=== PATIENT | female | born 1930 ===

== ENCOUNTER 2017-08-19 16:37 | Inpatient (IN) | payer MEDICARE ==
--- NOTE | 2017-08-19 17:05 | ED PDOC ---
Arrival/HPI - General Time Seen by Provider: 08/19/17 16:46 Historian: Patient, Family - History of Present Illness Narrative History of Present Illness (Text): 87yoF, htn, hl, who was sent by Dr. Leavitt for noted rapid heart rate/afib, concern for chf as pt with sob/bl lower extremity mild edema wo calf pain/ tenderness, and otherwise no n/v/bustillo/dizziness/abdomen pain/numbness/pain with urination/chest pain/travel/prior blood clot/prior cancer. 08/19/17 17:02 Time/Duration: 24 hours Symptom Onset: Gradual Symptom Course: Unchanged Quality: Other (no pain) Activities at Onset: Rest Context: Sitting Past Medical History - Provider Review Nursing Documentation Reviewed: Yes - Travel History Have you recently traveled outside [place] w/in the past 3 mons?: No Family/Social History - Physician Review Nursing Documentation Reviewed: Yes Family/Social History: No Known Family HX Allergies/Home Meds Allergies/Adverse Reactions: Allergies No Known Allergies Allergy (Verified 08/19/17 17:16) Review of Systems - Review of Systems Constitutional: Normal Eyes: Normal ENT: Normal Respiratory: SOB Cardiovascular: Normal Gastrointestinal: Normal Genitourinary Female: Normal Musculoskeletal: Normal Skin: Normal Neurological: Normal Endocrine: Normal Hemo/Lymphatic: Normal Psychiatric: Normal Physical Exam Vital Signs Reviewed: Yes Vital Signs Temp Pulse Resp BP Pulse Ox 08/19/17 18:46 100 H 17 134/76 100 08/19/17 16:50 97.5 F L 105 H 18 144/90 99 Appearance: Positive for: Well-Appearing, Non-Toxic, Comfortable Pain Distress: None Mental Status: Positive for: Alert and Oriented X 3 - Systems Exam Head: Present: Atraumatic, Normocephalic Pupils: Present: PERRL Extroacular Muscles: Present: EOMI Conjunctiva: Present: Normal Ears: Present: Normal Mouth: Present: Moist Mucous Membranes Pharnyx: Present: Normal Nose (External): Present: Atraumatic, Abrasion Nose (Internal): Present: Normal Inspection Neck: Present: Normal Range of Motion Respiratory/Chest: Present: Clear to Auscultation, Good Air Exchange Cardiovascular: Present: Regular Rate and Rhythm Abdomen: No: Tenderness, Distention, Normal Bowel Sounds, Peritoneal Signs, Rebound, Guarding, McBurney's Point Tender, Rovsing's Sign Present, Hernias, Feeding Tubes, Ostomy Tubes, Mass/Organomegaly, Scars, Other Back: Present: Normal Inspection Upper Extremity: Present: Normal Inspection Lower Extremity: Present: Edema. No: Normal Inspection, CALF TENDERNESS, NORMAL PULSES, Cyanosis, Normal ROM, Lashawn's Sign, Tenderness, Swelling, Erythema, Deformity, Temperature Abnormalties, Neurovascularly Intact, Capillary Refill < 2 s, Other Neurological: Present: GCS=15, CN II-XII Intact, Speech Normal, Motor Func Grossly Intact Skin: Present: Warm, Normal Color Psychiatric: Present: Alert, Oriented x 3, Normal Insight, Normal Concentration Medical Decision Making ED Course and Treatment: 87yoF, htn, hl, who was sent by Dr. Leavitt for noted rapid heart rate/afib, concern for chf as pt with sob/bl lower extremity mild edema wo calf pain/ tenderness, and otherwise no n/v/bustillo/dizziness/abdomen pain/numbness/pain with urination/chest pain/travel/prior blood clot/prior cancer. ECG: sinus tachycardia wtih premature supraventricular complexes with junctional escape complexes. 08/19/17 17:04 08/19/17 18:40 wbc 9.7 hb 8.2 plts 295 INR 1.56 Mg 0.5 Trop 0.07 BNP 9090 elevated LFTs transaminases Tbili 0.9 CXR vascular markings 08/19/17 18:40 08/19/17 18:56 08/19/17 18:56 lasix 40mg Magnesium 2gm consented ordered 2u prbc 08/19/17 18:57 08/19/17 18:57 08/19/17 19:11 d/w Dr. Barajas who agreed with lasix 40mg, 2u prbc, admit to tele, and consult Dr. Leavitt Reassessment Condition: Re-examined, Improved - Lab Interpretations Lab Results: 08/19/17 16:50 08/19/17 16:50 Lab Results 08/19/17 16:50: Sodium 141, Potassium 3.9, Chloride 101, Carbon Dioxide 21, Anion Gap 23 H, BUN 32 H, Creatinine 0.8, Est GFR ( Amer) > 60, Est GFR ( Non-Af Amer) > 60, Random Glucose 161 H, Calcium 8.4, Magnesium 0.5 L*, Total Bilirubin 0.9, AST 68 H, ALT 57 H, Alkaline Phosphatase 160 H, Lactate Dehydrogenase 771 H, Total Creatine Kinase 38, Troponin I 0.07, NT-Pro-B Natriuret Pep 9090 H, Total Protein 7.5, Albumin 3.7, Globulin 3.8, Albumin/ Globulin Ratio 1.0 L 08/19/17 16:50: PT 18.0 H, INR 1.56 H, APTT 27.8 08/19/17 16:50: WBC 9.7, RBC 3.69, Hgb 8.2 L, Hct 27.1 L, MCV 73.4 L, MCH 22.2 L , MCHC 30.3 L, RDW 18.5 H, Plt Count 295, MPV 10.4, Gran % 81.6 H, Lymph % (Auto ) 11.5 L, [place] % (Auto) 6.7 H, Eos % (Auto) 0.0 L, Baso % (Auto) 0.2, Gran # 7.87 H, Lymph # (Auto) 1.1 L, [place] # (Auto) 0.7 H, Eos # (Auto) 0.0, Baso # ( Auto) 0.02 I have reviewed the lab results: Yes - RAD Interpretation Radiology Orders: 08/19/17 17:37 CHEST PORTABLE [RAD] Stat Cytology Manager: ED Physician (cxr vascular markings), Radiologist (cxr cardiomegaly , no pulmonary congestion, no infiltrate b/l) - EKG Interpretation Interpreted by ED Physician: Yes (sinus tachycardia wtih premature supraventricular complexes with junctional) Type: 12 lead EKG - Medication Orders Current Medication Orders: Furosemide (Lasix) 40 mg IVP STAT STA Stop: 08/19/17 18:54 Magnesium Sulfate 2 gm/ Sodium (Chloride) 104 mls @ 102 mls/hr IVPB ONCE ONE Stop: 08/19/17 19:56 Disposition/Present on Arrival - Present on Arrival Any Indicators Present on Arrival: No - Disposition Have Diagnosis and Disposition been Completed?: Yes Diagnosis: Anemia, CHF (congestive heart failure) Disposition: HOSPITALIZED Disposition Time: 19:13 Patient Plan: Admission Condition: IMPROVED Discharge Instructions (ExitCare): Heart Failure (ED) Referrals: Dariusz Barajas JD, MD [Primary Care Provider] - Follow up with primary
[2017-08-19 17:44] LABS: BASO # 0.02 K/mm3 (0.0-2.0); BASO % 0.2 % (0.0-3.0); GRAN # 7.87 (1.4-6.5); GRAN % 81.6 % (50.0-68.0); HEMOGLOBIN 8.2 g/dL (12.0-16.0); LYMPH # 1.1 (1.2-3.4); LYMPH % 11.5 % (22.0-35.0); MEAN CELL VOLUME 73.4 fl (80.0-105.0); MEAN CORPUSCULAR HEMOGLOBIN 22.2 pg (25.0-35.0); MEAN CORPUSCULAR HGB CONC 30.3 g/dl (31.0-37.0); MEAN PLATELET VOLUME 10.4 fl (7.0-11.0); MONO # 0.7 (0.1-0.6); MONO % 6.7 % (1.0-6.0); RBC 3.69 10^6/uL (3.5-6.1); RED CELL DISTRIBUTION WIDTH 18.5 % (11.5-14.5); WHITE BLOOD COUNT 9.7 10^3/ul (4.5-11.0)
[2017-08-19 17:54] LABS: INR 1.56 (0.93-1.08); PARTIAL THROMBOPLASTIN TIME 27.8 Seconds (25.1-36.5)
[2017-08-19 18:08] LABS: TROPONIN I 0.07 ng/mL
[2017-08-19 18:44] LABS: ALBUMIN 3.7 g/dL (3.0-4.8); ALT/SGPT 57 U/L (7-56); AST/SGOT 68 U/L (14-36); B-TYPE NATRIURETIC PEPTIDE 9090 pg/mL (0-450); BLOOD UREA NITROGEN 32 mg/dL (7-21); CALCIUM 8.4 mg/dL (8.4-10.5); GFR AFRICAN-AMERICAN > 60; GFR NON-AFRICAN AMERICAN > 60
--- NOTE | 2017-08-19 18:58 | RAD ---
HISTORY: 87yoF, sob COMPARISON: No prior. FINDINGS: LUNGS: No active pulmonary disease. PLEURA: No significant pleural effusion identified, no pneumothorax apparent. CARDIOVASCULAR: Cardiomegaly is apparent with dense mitral annular calcifications as well. No definite pulmonary vascular derangement evident. OSSEOUS STRUCTURES: No significant abnormalities. VISUALIZED UPPER ABDOMEN: Normal. OTHER FINDINGS: None. IMPRESSION: Cardiomegaly. No pulmonary venous congestion. No acute infiltrate bilaterally.
--- NOTE | 2017-08-19 19:17 | CARD ---
APPROVED REPORT EKG Measurement Heart [id number] <Conclusion> Sinus tachycardia with premature supraventricular complexes Possible Anterior infarct, age undetermined Abnormal ECG
[2017-08-19] MEDS ORDERED: Magnesium Sulfate 2 GM in Sodium Chloride 0.9% 100 ML IVPB ONE (19:52)
[2017-08-19] MEDS: Magnesium Sulfate 2 GM in Sodium Chloride 0.9% 100 ML IVPB ONE ×2 (20:15→22:29)
[2017-08-19] MEDS ORDERED: Magnesium Oxide 400 mg Tab UD PO STA (20:36)
[2017-08-19] MEDS: Potassium Chloride 20 mEq ER Tab PO SCH (21:16)
[2017-08-20 03:57] LABS: URINE BILIRUBIN NEGATIVE (NEGATIVE); URINE BLOOD TRACE-INTACT (NEGATIVE); URINE GLUCOSE (UA) NEGATIVE (NEGATIVE); URINE LEUKOCYTE ESTERASE NEGATIVE Leu/uL (NEGATIVE); URINE PROTEIN NEGATIVE mg/dL (<30 mg/dL); URINE UROBILINOGEN 0.2 E.U./dL (<1 E.U./dL)
[2017-08-20 03:58] LABS: URINE APPEARANCE CLEAR (CLEAR); URINE COLOR YELLOW (YELLOW)
[2017-08-20 04:18] LABS: URINE BACTERIA RARE (NEG); URINE EPITHELIAL CELLS 0 - 2 /hpf (0-5); URINE WBC 0 - 2 /hpf (0-6)
--- NOTE | 2017-08-20 05:25 | CON ---
DATE: 08/19/2017 LOCATION: Emergency room. REASON FOR CONSULTATION: Atrial fibrillation, rapid rate, shortness of breath, hypertension. HISTORY OF PRESENT ILLNESS: An 87-year-old female, known hypertensive for long time, admitted with a history that recently started getting shortness of breath on minimal exertion,, now it got worsened, feels shortness of breath. She sleeps on two pillows and sometimes she gets PND and has to sit up on the bedside. She also noticed swelling on the feet. The patient was seen in office, and at that time her heart rate was around 150 per minute. EKG in the office showed atrial fibrillation, rapid ventricular rate. The patient was sent to emergency room of [facility] where the EKG showed multifocal atrial rhythm. The patient had converted from atrial fibrillation to multifocal atrial rhythm while travel from my office to emergency room. The patient denies any chest pain, but continued to have shortness of breath. At the time of atrial fibrillation, the patient also complained about palpitations. Patient states that recently she twice had a syncopal episode, and she was admitted both time at [facility]; one time she was there seven days, another time she was there six days, and the patient is not aware of what the diagnosis was made at that time. PAST MEDICAL HISTORY: Positive for hypertension. PERSONAL HISTORY: Denies smoking. Denies drinking. The patient recently also notes that she is losing weight. Appetite is very poor and she is also feeling weak. Denies hematemesis or melena. ALLERGIES: THE PATIENT DENIES ANY ALLERGIES. MEDICATION AT HOME: Patient was on multiple medications at home. PHYSICAL EXAMINATION: VITAL SIGNS: Blood pressure 134/76, initial blood pressure 144/90, respiration 18, pulse 105, but in my office pulse was around 150, temperature 97.5. HEENT: Head is normocephalic. Eyes: Pupils normal. Conjunctivae pale. NECK: JVP elevated. LUNGS: Basilar rales. CARDIOVASCULAR: S1 and S2. Pansystolic murmur, grade 3/6. No rubs. ABDOMEN: Soft, nontender. No organomegaly. Bowel sounds normal. EXTREMITIES: The patient has edema on the feet. No clubbing. No cyanosis. LABORATORY DATA: Shows WBC 9.7, hemoglobin 8.2, hematocrit 27.1, platelet 295. Sodium 141, potassium 3.9, BUN 32, creatinine 0.8, magnesium 0.5, AST 58, ALT 57. NT-pro-B natriuretic peptide 9090. Total protein and albumin normal. Chest x-ray showed mild congestive heart failure changes. EKG now has converted into multifocal atrial rhythm with nonspecific ST-T changes. EKG in my office showed atrial fibrillation with rapid ventricular, rate between 150-160 per minute. DIAGNOSES: 1. Congestive heart failure secondary to hypertension. 2. Atrial fibrillation. 3. Hypertension. 4. Anemia. 5. AST, ALT elevated suggestive of hepatic dysfunction. 6. Anemia with low MCH, MCHC, MCV suggestive of iron-deficiency anemia, rule out gastrointestinal bleeding. PLAN: Plan is we will give Lopressor 50 mg p.o. b.i.d., Lasix 40 mg IV daily, potassium 20 mg p.o. daily. The patient will need workup for iron-deficiency anemia, hypertension. Low magnesium, we will give magnesium therapy. We will check TSH and also check lipid profile. We will monitor intake and output and follow up labs. We will follow with you. Eveline Leavitt MD
[2017-08-20 07:13] LABS: BASO # 0.02 K/mm3 (0.0-2.0); BASO % 0.2 % (0.0-3.0); EOS % 0.1 % (1.5-5.0); GRAN # 11.09 (1.4-6.5); GRAN % 87.2 % (50.0-68.0); HEMOGLOBIN 10.3 g/dL (12.0-16.0); LYMPH # 0.9 (1.2-3.4); LYMPH % 7.3 % (22.0-35.0); MEAN CELL VOLUME 75.2 fl (80.0-105.0); MEAN CORPUSCULAR HEMOGLOBIN 23.7 pg (25.0-35.0); MEAN CORPUSCULAR HGB CONC 31.5 g/dl (31.0-37.0); MEAN PLATELET VOLUME 10.8 fl (7.0-11.0); MONO # 0.7 (0.1-0.6); MONO % 5.2 % (1.0-6.0); RBC 4.35 10^6/uL (3.5-6.1); RED CELL DISTRIBUTION WIDTH 18.4 % (11.5-14.5); WHITE BLOOD COUNT 12.7 10^3/ul (4.5-11.0)
[2017-08-20 07:28] LABS: B-TYPE NATRIURETIC PEPTIDE 8780 pg/mL (0-450)
[2017-08-20 07:32] LABS: LDL CHOLESTEROL 128 mg/dL (0-129)
[2017-08-20 07:34] LABS: ALB/GLOB RATIO 0.9 (1.1-1.8); ALBUMIN 3.7 g/dL (3.0-4.8); ALT/SGPT 77 U/L (7-56); AST/SGOT 93 U/L (14-36); BLOOD UREA NITROGEN 37 mg/dL (7-21); CALCIUM 8.4 mg/dL (8.4-10.5); GFR AFRICAN-AMERICAN > 60; GFR NON-AFRICAN AMERICAN 60; HDL CHOLESTEROL 25 mg/dL (29-60)
[2017-08-20] MEDS ORDERED: Magnesium Sulfate 2 GM in Sodium Chloride 0.9% 100 ML IVPB ONE (09:48)
[2017-08-20] MEDS: Potassium Chloride 20 mEq ER Tab PO SCH (10:08)
[2017-08-20] MEDS: Magnesium Oxide 400 mg Tab UD PO SCH ×2 (10:09→17:49)
[2017-08-20 11:25] VITALS: BMI 22.3
--- NOTE | 2017-08-20 14:24 | PN ---
DATE: 08/20/2017 LOCATION: The patient on room 260, bed 2. REASON FOR CONSULTATION AND FOLLOWUP: Atrial fibrillation converted to multifocal atrial tachycardia, atrial fibrillation versus rapid rate, shortness of breath, hypertension, anemia, history of recent syncope, was at [facility]. SUBJECTIVE: The patient lying comfortably in bed. Denies any chest pain. Her shortness of breath has improved. Her palpitation has also improved. Denies any dizziness. PHYSICAL EXAMINATION VITAL SIGNS: Blood pressure 136/79, respirations 19, pulse 93, temperature 97.8. HEENT: Head is normocephalic. Eyes: Pupils normal. Conjunctivae pale. NECK: JVP low. Carotids equal. THORAX: AP diameter normal. The patient has ____ are improved. CARDIOVASCULAR: S1 and S2. Pansystolic murmur. No rub. ABDOMEN: Soft. Bowel sounds normal. EXTREMITIES: Swelling and edema has also improved. LABORATORY DATA: WBC 12.7; hemoglobin 10.3, yesterday hemoglobin was 8.2; hematocrit 32.7, yesterday hematocrit was 27.1 so this reflects probably the patient was diuresed, so it is a diuretic effect with hemoconcentration. Sodium 139, potassium 4.6, BUN 37, creatinine 0.9. Random glucose 133, phosphorus 5.3, calcium 8.4. Magnesium yesterday was 0.5, today is 1.4. AST yesterday was 68, today 93. ALT yesterday 57, today is 77. Alkaline phosphatase yesterday 160, today is 210. NT-pro-B natriuretic peptide 8780, yesterday was 9090. Total protein 7.7, albumin 3.7. PT 18, INR 1.56, PTT 27.8. DIAGNOSES: Congestive heart failure secondary to hypertension and a run of atrial fibrillation. In my office, the patient's EKG showed atrial fibrillation rate around 150 to 160 per minute. However, by the time, she came to the Emergency Room, she converted to multifocal atrial rhythm. Anemia, hypertension, AST and ALT elevated, hepatic dysfunction. Hemoglobin, hematocrit, MCV, MCH, MCHC low suggestive of iron-deficiency anemia, rule out gastrointestinal bleeding, hypomagnesemia. PLAN: Plan is to do stool guaiac daily. Also, we will repeat labs in the morning. We will give magnesium sulfate 2 g IV today and we will also do hepatitis profile and repeat PT/INR in the morning and we will also do abdominal ultrasound. The patient has history of weight loss, loss of appetite, and abnormal LFTs. The patient is on Lasix 40 mg IV daily, metoprolol 50 mg b.i.d., magnesium oxide 400 mg p.o. b.i.d., lisinopril 10 mg daily. We will do abdominal ultrasound also and we will also try to get echo report from [facility] where she was admitted twice, once she stayed there seven days and second time she stayed there 6 days, both times she went in for syncope. The patient's family does not know the diagnosis, but the workup was done. We will follow. Eveline Leavitt MD
--- NOTE | 2017-08-20 16:18 | US ---
HISTORY: Abnormal LFTs, Weight Loss, Appetite Loss. COMPARISON: None. TECHNIQUE: Sonographic evaluation of the abdomen. FINDINGS: LIVER: Measures 14.8 cm. Normal echogenicity of the liver parenchyma. No mass. No intrahepatic bile duct dilatation. GALLBLADDER: Multiple gallstones. There is edema of the gallbladder wall which measures 10 mm thick COMMON BILE DUCT: Measures 5.5 mm. No stones. No dilatation. PANCREAS: Unremarkable as visualized. No mass. No ductal dilatation. RIGHT KIDNEY: Measures 9.4 x 3.9 x 5.2cm. Normal echogenicity. No calculus, mass, or hydronephrosis. There is a 2 cm cyst LEFT KIDNEY: Measures 10.4 x 4.5 x 5.0cm. Normal echogenicity. No calculus, mass, or hydronephrosis. SPLEEN: Normal in size and contour. No mass. 11.1 x 3.4 x 3.3 cm AORTA: No aneurysmal dilatation. IVC: Unremarkable. OTHER FINDINGS: None. IMPRESSION: Multiple gallstones. There is edema of the gallbladder wall which measures 10 mm thick
--- NOTE | 2017-08-20 17:27 | CARD ---
APPROVED REPORT EXAM: Two-dimensional and M-mode echocardiogram with Doppler and color Doppler. INDICATION Atrial Fibrillation Congestive Heart Failure 2D DIMENSIONS Left Atrium (2D)5.7 (1.6-4.0cm)IVSd1.1 (0.7-1.1cm) LVDd4.5 (3.9-5.9cm)LVOT Diameter2.1 (1.8-2.4cm) PWd1.4 (0.7-1.1cm)LVDs3.5 (2.5-4.0cm) FS (%) 22.8 %LVEF (%)46.0 (>50%) M-Mode DIMENSIONS Aortic Root3.30 (2.2-3.7cm)Aortic Cusp Exc.1.10 (1.5-2.0cm) Aortic Valve AoV Peak Hjkbrlmw807.0cm/sAoV VTI40.8cmAO Peak GR.17mmHg LVOT Peak Tadqsooa57.4cm/sLVOT VTI14.60cmAO Mean GR.10mmHg JAYCEE (VMAX)1.27ry0WAF (VTI)1.57fq4LJ P 1/2 Lgys503tc Mitral Valve MV PVC55qeW/A ratio0.0MVA (PHT)3.44cm2 TDI E/Lateral E'0.0E/Medial E'0.0 Pulmonary Valve PV Peak Fzkcikro53.0cm/sPV Peak Grad.2mmHg Tricuspid Valve TR Peak Fjytqtrp681ki/sRAP UCCBUFDB59yuSoXV Peak Gr.76mmHg [id number] <Conclusion> LV Size Normal. Mild LV Hypeertrophy. Mildly Decreased LV Systolic Function with LV Ej.Fr: 45-50%. Lt Atrium and Rt Atrium Both Enlarged. Mitral Annulus Heavily Calcified. Thickened Mitral Valve Leaflets.But Opening is Adequate. Moderate Mitral Regurge. Thickened Aortic Valve Leaflets. Aortic Valv e opening Adequate. AV Max.Pr.Gradient 17mm Hg. Moderate to Severe Aortic Regurge. Severe Tricuspid Regurge. RVSP 86mm Hg suggestive of Severe Pulmonary Hypertension.
[2017-08-20] MEDS: Insulin Reg-LOW-Coverage SC SCH ×2 (17:33→22:16)
[2017-08-20] MEDS ORDERED: Iohexol 240 (50 ml) ONE (21:43)
[2017-08-20] MEDS: metroNIDAZOLE IV 500 mg/100 ml 500 MG/100 ML BAG IVPB SCH (22:50)
--- NOTE | 2017-08-21 02:05 | HP ---
HISTORY OF PRESENT ILLNESS: The patient is an 87-year-old female referred by Cardiology, Dr. Leavitt, for rapid heart rate. The patient was found to be in rapid atrial fibrillation. She is now admitted on the telemetry unit for further evaluation and management. PAST MEDICAL HISTORY: Includes hypertension, anemia of unknown etiology, type 2 diabetes mellitus. Past medical history is negative for myocardial infarct, negative for diabetes. The patient was recently admitted for possible syncope to [facility] in 05/2017. She had a transesophageal echocardiogram, which shows severe aortic regurgitation. The patient denies any chest pain. She has mild to moderate dyspnea on exertion. She denies any melena. No bright red blood per rectum. She has an unquantified weight loss over the past several months. PAST SURGICAL HISTORY: The patient has no significant past surgical history. CURRENT MEDICATIONS: Include omeprazole, Feosol, glimepiride, amlodipine 10 mg daily, Lasix 20 mg daily, tramadol, Zocor 20 mg daily, losartan 100 mg daily, aspirin and Fioricet. SOCIAL HISTORY: The patient has no history of tobacco or alcohol use. FAMILY HISTORY: Noncontributory. ALLERGIES: THE PATIENT HAS NO KNOWN DRUG ALLERGIES. She is independent with ADLs and IADLs. REVIEW OF SYSTEMS: Essentially as above. PHYSICAL EXAMINATION: GENERAL: The patient is a well-developed, mildly cachectic female, in no acute distress. VITAL SIGNS: Blood pressure 126/72, temperature 98.4, pulse 73, respiratory rate 20. HEENT: Head is normocephalic, atraumatic. Pupils equal, round, reactive to light. Extraocular movements intact. NECK: Supple with no thyromegaly. No carotid bruit. No adenopathy. LUNGS: Show a few bibasilar crackles. HEART: Regular rate and rhythm with frequent ectopic beats, grade 3/6 systolic murmur. ABDOMEN: Soft, nontender. Bowel sounds are normoactive. EXTREMITIES: Without cyanosis, clubbing or edema. NEUROLOGIC: The patient is awake and oriented x3, without focal sensory or motor deficits. SKIN: Warm and dry. LABORATORY DATA: WBC is 12.7; hemoglobin 10.3, status post transfusion of 2 units of packed cells, up from 8.2 on admission; hematocrit 32.7, platelets 284,000. Sodium 139, potassium 4.6, chloride 99, CO2 of 24, BUN 37, creatinine 0.9, glucose 133, phosphorus is 5.3, magnesium is 1.4, status post supplementation, total bilirubin 1.7, AST 93, ALT 77, alkaline phosphatase 210, LDH 771. BNP is elevated 8780. Troponin is 0.07. CPK is 38. Chest x-ray shows cardiomegaly with no pulmonary venous congestion and no infiltrates bilaterally. IMPRESSION: 1. Congestive heart failure. 2. Atrial fibrillation, paroxysmal. 3. Hypertension and hypertensive cardiovascular disease. 4. Severe aortic regurgitation. 5. Anemia with elevated liver function tests, rule out gastrointestinal malignancy. PLAN The patient has been admitted to telemetry unit. Cardiology consultation by Dr. Leavitt is appreciated. The patient has been started on Lasix, oxygen, lisinopril, magnesium has been supplemented. We will start the patient on low-dose regular insulin coverage. We will obtain Gastroenterology consult with Dr. Silverio for evaluation for anemia. Physical therapy and social work for discharge planning. Echocardiogram is pending. Dariusz Barajas JD/
[2017-08-21] MEDS: metroNIDAZOLE IV 500 mg/100 ml 500 MG/100 ML BAG IVPB SCH ×3 (05:44→21:25)
[2017-08-21 06:26] LABS: BASO # 0.02 K/mm3 (0.0-2.0); BASO % 0.2 % (0.0-3.0); EOS # 0.1 (0.0-0.7); EOS % 0.8 % (1.5-5.0); GRAN # 9.98 (1.4-6.5); GRAN % 84.3 % (50.0-68.0); HEMOGLOBIN 9.7 g/dL (12.0-16.0); LYMPH # 1.1 (1.2-3.4); LYMPH % 8.9 % (22.0-35.0); MEAN CELL VOLUME 75.3 fl (80.0-105.0); MEAN CORPUSCULAR HEMOGLOBIN 23.3 pg (25.0-35.0); MEAN CORPUSCULAR HGB CONC 30.9 g/dl (31.0-37.0); MEAN PLATELET VOLUME 10.8 fl (7.0-11.0); MONO # 0.7 (0.1-0.6); MONO % 5.8 % (1.0-6.0); RBC 4.17 10^6/uL (3.5-6.1); RED CELL DISTRIBUTION WIDTH 18.6 % (11.5-14.5); WHITE BLOOD COUNT 11.8 10^3/ul (4.5-11.0)
[2017-08-21] MEDS ORDERED: Iohexol 240 (50 ml) ONE (06:32)
[2017-08-21 07:01] LABS: ALB/GLOB RATIO 0.9 (1.1-1.8); ALBUMIN 3.3 g/dL (3.0-4.8); ALT/SGPT 81 U/L (7-56); AST/SGOT 96 U/L (14-36); BILIRUBIN,DIRECT 0.6 mg/dL (0.0-0.4); BLOOD UREA NITROGEN 43 mg/dL (7-21); CALCIUM 8.2 mg/dL (8.4-10.5); GFR AFRICAN-AMERICAN > 60; GFR NON-AFRICAN AMERICAN 53
[2017-08-21] MEDS: Insulin Reg-LOW-Coverage SC SCH ×4 (08:16→22:08)
[2017-08-21] MEDS: Magnesium Oxide 400 mg Tab UD PO SCH ×2 (09:41→17:30)
[2017-08-21] MEDS: Potassium Chloride 20 mEq ER Tab PO SCH (09:42)
[2017-08-21] MEDS: cefTRIAXone 1 gm 1 GM/100 ML BAG IVPB SCH (09:42)
--- NOTE | 2017-08-21 10:39 | CT ---
PROCEDURE: CT Abdomen and Pelvis with contrast HISTORY: sepsis r/o acute cholecystitis COMPARISON: August 20, 2017. Abdominal ultrasound. Summary of findings on the comparison examination:Multiple gallstones. There is edema of the gallbladder wall which measures 10 mm thick TECHNIQUE: Oral contrast only. Radiation dose: Total exam DLP = 352.70 mGy-cm. This CT exam was performed using one or more of the following dose reduction techniques: Automated exposure control, adjustment of the mA and/or kV according to patient size, and/or use of iterative reconstruction technique. FINDINGS: LOWER THORAX: Unremarkable. LIVER: Unremarkable. No gross lesion or ductal dilatation. GALLBLADDER AND BILE DUCTS: Dilated gallbladder, small gallstones. No CT evidence of acute cholecystitis. PANCREAS: Unremarkable.[place] No gross lesion or ductal dilatation. SPLEEN: Unremarkable. ADRENALS: Unremarkable. No mass. KIDNEYS AND URETERS: Unremarkable. No hydronephrosis. No solid mass. VASCULATURE: Unremarkable. No aortic aneurysm. BOWEL: Large right inguinal hernia containing nondilated loops of small bowel. No evidence of incarceration or more proximal small bowel obstruction. Moderate-sized hiatal hernia. Masslike process in the cardia seen on all 3 orthogonal planes. While this may represent adherent ingested material gastric mass should also be considered and follow-up is recommended. Diverticulosis without an acute inflammatory component or other associated pathologic process. APPENDIX: No abnormalities to suggest acute appendicitis. No right lower quadrant inflammatory processes identified. PERITONEUM: Unremarkable. No free fluid. No free air. LYMPH NODES: Unremarkable. No enlarged lymph nodes. BLADDER: Unremarkable. REPRODUCTIVE: Unremarkable. BONES: No acute fracture. Scoliosis, secondary degenerative change at multiple levels. OTHER FINDINGS: None. IMPRESSION: Cholelithiasis without CT evidence of acute cholecystitis. Possible mass in the stomach. Elective followup recommended. As an alternative to endoscopy, repeat CT with oral contrast may resolve this issue. Right inguinal hernia without evidence of incarceration or proximal obstruction. Additional benign and/or incidental findings described above.
--- NOTE | 2017-08-21 11:06 | PQF CHF ---
This form is a permanent part of the medical record Clarification of your documentation is requested to better reflect the severity of illness and intensity of treatment of your patient. Indicators present Documentation of " CHF 2nd to HTN requires clarification as to type & acuity POA. ECHO reveals mildly decreased LVLEF- 46.0 [x] Diagnosis of CHF and/or history of CHF [x] BNP > 200 [] Imaging Finding of Pulmonary Edema /Pleural Effusions [] Fluid/Volume Overload [] Pitting edema [] Ejection Fraction < 40% (Indicative of Systolic Heart Failure) [x] Ejection Fraction > 40% (Indicative of Diastolic Heart Failure) [x] Dyspnea / Orthopenea / Paroxysmal Nocturnal Dyspnea [] Other: Location in the medical record that reflects the above clinical findings: [x] Cardiology Consult Treatment Provided: [] PHYSICIAN'S RESPONSE Based on your medical judgment of the clinical indicators outlined above, are you treating this patient for a known or suspected: [] Acute CHF [] Systolic [] Diastolic [] Combined [] Chronic CHF [] Systolic [] Diastolic [] Combined [] Acute on Chronic CHF []Systolic [] Diastolic [] Combined [] CHF due hypertension [] Acute systolic []Chronic systolic [] Acute/ chronic systolic [] Other, please indicate: [] [] If Unable to Determine, please check the box, sign and date. Present On Admission (POA) Indicator: [] Present at the time of admission [] Not present at the time of admission [] Clinically Undetermined In responding to this query, please exercise your independent professional judgment. The fact that a question is asked does not imply that any particular answer is desired or expected. Thank you for your clarification on this documentation. If you have any questions please call:[ ][phone] * Thank you, [ ] Ute Walker RN CDS oven drier tender YUSEF
--- NOTE | 2017-08-21 11:38 | CP.PCM.CON ---
<Shefali Clark - Last Filed: 08/21/17 15:46> History of Present Illness - History of Present Illness History of Present Illness: Seen and examined at the bedside late this morning, chart review. Request for GI consult is for anemia/weight loss/elevated LFTs. HPI: This is an 87-year-old female with a past medical history of hypertension, diabetes mellitus type 2, sent to the emergency room for further evaluation by her press catcher for rapid heartbeat. The patient was found to be in rapid atrial fibrillation. On review of labs patient was found to have a hemoglobin on admission of 8.2.this patient had 2 units of packed RBC. The patient denies any nausea, vomiting, or abdominal pain. She does complain of a 22 pound weight loss with the past 3 months and does report loss of appetite. The patient states that just yesterday her appetite is coming back. Denies any symptoms of dysphagia, dyspepsia, shortness of breath or chest pain. On admission she had an abdominal ultrasound which showed multiple gallstones and edema of the gallbladder wall measuring 10 mm thickness. The patient denies any abdominal pain, fevers or chills. She was sent for CT scan of abdomen and pelvis with oral contrast which reported a dilated gallbladder with small stones but no evidence of acute cholecystitis. Also noted was a possible mass in the stomach, right inguinal hernia but no evidence of incarceration or obstruction. The patient denies ever having an endoscopy or colonoscopy. Denies change in bowel habits, she moves her bowels regular, her last bowel movement was this morning and it was formed. Denies any melena or bright red blood per rectum. She does admit to using Advil but once in a blue maroon as per patient only for headache, not on a regular basis. Past medical history: Hypertension, anemia, diabetes mellitus type 2, syncope, was hospitalized at [facility] in 05/2017 Past surgical history: Patient denies, history of CVA showing aortic regurgitation Allergies: No known drug allergies Medications: Reviewed as per [facility] Social history: Denies smoking, EtOH or illicit drug use Family history: Patient reports that 2 brothers had cancer but patient cannot recall what type of cancer. ROS: Systems reviewed a positive findings see HPI Past Patient History - Past Social History Smoking Status: Never Smoked - CARDIAC Hx Cardiac Disorders: Yes Hx Heart Murmur: Yes Hx Hypercholesterolemia: Yes Hx Hypertension: Yes - PULMONARY Hx Respiratory Disorders: Yes (flu) Hx Pneumonia: Yes - NEUROLOGICAL Hx Neurological Disorder: Yes - HEENT Hx HEENT Problems: No - RENAL Hx Chronic Kidney Disease: No - ENDOCRINE/METABOLIC Hx Endocrine Disorders: No - HEMATOLOGICAL/ONCOLOGICAL Hx Blood Disorders: Yes Hx Anemia: Yes Hx Shingles: Yes - INTEGUMENTARY Hx Dermatological Problems: No - MUSCULOSKELETAL/RHEUMATOLOGICAL Hx Musculoskeletal Disorders: Yes (falls) Hx Arthritis: Yes Hx Falls: No Hx Unsteady Gait: Yes - GASTROINTESTINAL Hx Gastrointestinal Disorders: Yes Hx Gastroesophageal Reflux: Yes - GENITOURINARY/GYNECOLOGICAL Hx Genitourinary Disorders: No - PSYCHIATRIC Hx Psychophysiologic Disorder: No Hx Substance Use: No - SURGICAL HISTORY Hx Surgeries: No - ANESTHESIA Hx Anesthesia: No Meds Allergies/Adverse Reactions: Allergies Allergy/AdvReac Type Severity Reaction Status Date / Time No Known Allergies Allergy Verified 08/19/17 17:16 - Medications Medications: Current Medications Furosemide (Lasix) 40 mg IV DAILY [facility] Last Admin: 08/21/17 09:41 Dose: 40 mg Ceftriaxone Sodium (Rocephin 1 Gram Ivpb) 1 gm in 100 mls @ 100 mls/hr IVPB DAILY [facility] PRN Reason: Protocol Last Admin: 08/21/17 09:42 Dose: 100 mls/hr Metronidazole (Flagyl) 500 mg in 100 mls @ 100 mls/hr IVPB Q8 [facility] PRN Reason: Protocol Last Admin: 08/21/17 05:44 Dose: 100 mls/hr Insulin Human Regular (Humulin R Low) 0 units SC ACHS [facility] PRN Reason: Protocol Last Admin: 08/21/17 08:16 Dose: Not Given Lisinopril (Zestril) 10 mg PO DAILY [facility] Last Admin: 08/21/17 09:42 Dose: 10 mg Magnesium Oxide (Mag-Ox) 400 mg PO BID [facility] Stop: 08/21/17 23:59 Last Admin: 08/21/17 09:41 Dose: 400 mg Metoprolol Tartrate (Lopressor) 50 mg PO BID [facility] Last Admin: 08/21/17 09:42 Dose: 50 mg Potassium Chloride (K-Dur 20 Meq Er Tab) 20 meq PO DAILY [facility] Last Admin: 08/21/17 09:42 Dose: 20 meq Physical Exam - Constitutional Appears: No Acute Distress - Head Exam Head Exam: NORMOCEPHALIC - Eye Exam Eye Exam: Normal appearance. absent: Scleral icterus - ENT Exam ENT Exam: Mucous Membranes Moist - Neck Exam Neck exam: Positive for: Normal Inspection - Respiratory Exam Respiratory Exam: NORMAL BREATHING PATTERN. absent: Respiratory Distress - Cardiovascular Exam Cardiovascular Exam: +S1, +S2 - GI/Abdominal Exam GI & Abdominal Exam: Normal Bowel Sounds, Soft. absent: Guarding, Organomegaly , Rebound, Tenderness - Extremities Exam Extremities exam: Positive for: pedal pulses present. Negative for: calf tenderness, pedal edema - Neurological Exam Neurological exam: Alert, Oriented x3 - Skin Skin Exam: Dry, Warm Results - Vital Signs Recent Vital Signs: Last Vital Signs Temp 97.9 F 08/21/17 06:00 Pulse 70 08/21/17 09:42 Resp 19 08/21/17 06:00 BP 133/68 08/21/17 09:42 Pulse Ox 100 08/21/17 06:00 - Labs Result Diagrams: 08/21/17 05:30 08/21/17 05:30 Labs: Laboratory Results - last 24 hr 08/20/17 08/20/17 08/21/17 08:00 17:12 05:30 WBC 11.8 H RBC 4.17 Hgb 9.7 L Hct 31.4 L MCV 75.3 L MCH 23.3 L MCHC 30.9 L RDW 18.6 H Plt Count 263 MPV 10.8 Gran % 84.3 H Lymph % (Auto) 8.9 L [place] % (Auto) 5.8 Eos % (Auto) 0.8 L Baso % (Auto) 0.2 Gran # 9.98 H Lymph # (Auto) 1.1 L [place] # (Auto) 0.7 H Eos # (Auto) 0.1 Baso # (Auto) 0.02 Sodium Potassium Chloride Carbon Dioxide Anion Gap BUN Creatinine Est GFR ( Amer) Est GFR (Non-Af Amer) POC Glucose (mg/dL) 136 H Random Glucose Hemoglobin A1c 5.8 Calcium Phosphorus Magnesium Total Bilirubin Direct Bilirubin AST ALT Alkaline Phosphatase Total Protein Albumin Globulin Albumin/Globulin Ratio 08/21/17 08/21/17 05:30 07:42 WBC RBC Hgb Hct MCV MCH MCHC RDW Plt Count MPV Gran % Lymph % (Auto) [place] % (Auto) Eos % (Auto) Baso % (Auto) Gran # Lymph # (Auto) [place] # (Auto) Eos # (Auto) Baso # (Auto) Sodium 138 Potassium 4.1 Chloride 96 L Carbon Dioxide 30 Anion Gap 16 BUN 43 H Creatinine 1.0 Est GFR ( Amer) > 60 Est GFR (Non-Af Amer) 53 POC Glucose (mg/dL) 119 H Random Glucose 114 H Hemoglobin A1c Calcium 8.2 L Phosphorus 3.7 Magnesium 1.8 Total Bilirubin 1.4 H Direct Bilirubin 0.6 H AST 96 H ALT 81 H Alkaline Phosphatase 276 H D Total Protein 7.0 Albumin 3.3 Globulin 3.6 Albumin/Globulin Ratio 0.9 L Assessment & Plan - Assessment and Plan (Free Text) Assessment: Assessment: Anemia Abnormal CT, reporting stomach mass Weight loss Rapid atrial fibrillation Cholelithiasis, , abdominal ultrasound reporting thickened gallbladder wall, status post CT scan no acute cholecystitis, patient asymptomatic Elevated LFTs, may be multifactorial, differentials to consider is hepatic congestion, gallstones, medication-induced CHF History of diabetes mellitus type 2 Hypertension Plan: Monitor H&H and for overt GI bleed, transfuse as necessary Monitor LFTs, request for hepatitis panel On IV antibiotics ceftriaxone and Flagyl for consent of acute cholecystitis patient may benefit from upper endoscopy for abnormal CT scan reporting stomach mass as well as complaints of weight loss. continue diet as tolerated Thank you for this consult and for allowing us to participate in your patient's care, further recommendations based upon clinical course. Seen and discussed with Dr. Iyer. <Johanny Silverio V - Last Filed: 08/21/17 21:37> Meds - Medications Medications: Current Medications Furosemide (Lasix) 40 mg IV DAILY [facility] Last Admin: 08/21/17 09:41 Dose: 40 mg Ceftriaxone Sodium (Rocephin 1 Gram Ivpb) 1 gm in 100 mls @ 100 mls/hr IVPB DAILY [facility] PRN Reason: Protocol Last Admin: 08/21/17 09:42 Dose: 100 mls/hr Metronidazole (Flagyl) 500 mg in 100 mls @ 100 mls/hr IVPB Q8 [facility] PRN Reason: Protocol Last Admin: 08/21/17 14:28 Dose: 100 mls/hr Insulin Human Regular (Humulin R Low) 0 units SC ACHS [facility] PRN Reason: Protocol Last Admin: 08/21/17 17:30 Dose: 1 units Lisinopril (Zestril) 10 mg PO DAILY [facility] Last Admin: 08/21/17 09:42 Dose: 10 mg Magnesium Oxide (Mag-Ox) 400 mg PO BID [facility] Stop: 08/21/17 23:59 Last Admin: 08/21/17 17:30 Dose: 400 mg Metoprolol Tartrate (Lopressor) 50 mg PO BID [facility] Last Admin: 08/21/17 17:30 Dose: 50 mg Potassium Chloride (K-Dur 20 Meq Er Tab) 20 meq PO DAILY [facility] Last Admin: 08/21/17 09:42 Dose: 20 meq Results - Vital Signs Recent Vital Signs: Last Vital Signs Temp 97.7 F 08/21/17 18:00 Pulse 64 08/21/17 18:00 Resp 18 08/21/17 18:00 BP 111/55 L 08/21/17 18:00 Pulse Ox 100 08/21/17 18:00 - Labs Result Diagrams: 08/21/17 05:30 08/21/17 05:30 Labs: Laboratory Results - last 24 hr 08/21/17 08/21/17 08/21/17 05:30 05:30 05:30 WBC 11.8 H RBC 4.17 Hgb 9.7 L Hct 31.4 L MCV 75.3 L MCH 23.3 L MCHC 30.9 L RDW 18.6 H Plt Count 263 MPV 10.8 Gran % 84.3 H Lymph % (Auto) 8.9 L [place] % (Auto) 5.8 Eos % (Auto) 0.8 L Baso % (Auto) 0.2 Gran # 9.98 H Lymph # (Auto) 1.1 L [place] # (Auto) 0.7 H Eos # (Auto) 0.1 Baso # (Auto) 0.02 Sodium 138 Potassium 4.1 Chloride 96 L Carbon Dioxide 30 Anion Gap 16 BUN 43 H Creatinine 1.0 Est GFR ( Amer) > 60 Est GFR (Non-Af Amer) 53 POC Glucose (mg/dL) Random Glucose 114 H Calcium 8.2 L Phosphorus 3.7 Magnesium 1.8 Total Bilirubin 1.4 H Direct Bilirubin 0.6 H AST 96 H ALT 81 H Alkaline Phosphatase 276 H D Total Protein 7.0 Albumin 3.3 Globulin 3.6 Albumin/Globulin Ratio 0.9 L Hepatitis A IgM Ab Negative Hep Bs Antigen Negative Hep B Core IgM Ab Negative Hepatitis C Antibody Negative 08/21/17 08/21/17 08/21/17 07:42 11:28 16:39 WBC RBC Hgb Hct MCV MCH MCHC RDW Plt Count MPV Gran % Lymph % (Auto) [place] % (Auto) Eos % (Auto) Baso % (Auto) Gran # Lymph # (Auto) [place] # (Auto) Eos # (Auto) Baso # (Auto) Sodium Potassium Chloride Carbon Dioxide Anion Gap BUN Creatinine Est GFR ( Amer) Est GFR (Non-Af Amer) POC Glucose (mg/dL) 119 H 129 H 198 H Random Glucose Calcium Phosphorus Magnesium Total Bilirubin Direct Bilirubin AST ALT Alkaline Phosphatase Total Protein Albumin Globulin Albumin/Globulin Ratio Hepatitis A IgM Ab Hep Bs Antigen Hep B Core IgM Ab Hepatitis C Antibody Attending/Attestation - Attestation I have personally seen and examined this patient.: Yes I have fully participated in the care of the patient.: Yes I have reviewed all pertinent clinical information: Yes Notes (Text): This is an addendum to GI consult report dictated by Shefali Clark APN.The patient was seen and examined earlier. Medical records, lab studies, imagings were reviewed. Last 24 hours events reviewed. Agreed with the above treatment plan as outlined in Shefali Clark APN's notes with the addition of the following 08/21/17 21:37
--- NOTE | 2017-08-21 12:06 | CP.PCM.PN ---
Subjective - Date & Time of Evaluation Date of Evaluation: 08/21/17 Time of Evaluation: 11:30 - Subjective Subjective: NAD, denies chest pain, no SOB, no melena, no BRBPR, feels better s/p transfx Objective - Vital Signs/Intake and Output Vital Signs (last 24 hours): Temp Pulse Resp BP Pulse Ox 97.9 F 81 19 133/68 100 08/21/17 06:00 08/21/17 10:00 08/21/17 06:00 08/21/17 09:42 08/21/17 06:00 Intake and Output: 08/21/17 08/21/17 06:59 18:59 Intake Total 840 Output Total 575 Balance 265 - Medications Medications: Current Medications Furosemide (Lasix) 40 mg IV DAILY [facility] Last Admin: 08/21/17 09:41 Dose: 40 mg Ceftriaxone Sodium (Rocephin 1 Gram Ivpb) 1 gm in 100 mls @ 100 mls/hr IVPB DAILY [facility] PRN Reason: Protocol Last Admin: 08/21/17 09:42 Dose: 100 mls/hr Metronidazole (Flagyl) 500 mg in 100 mls @ 100 mls/hr IVPB Q8 [facility] PRN Reason: Protocol Last Admin: 08/21/17 05:44 Dose: 100 mls/hr Insulin Human Regular (Humulin R Low) 0 units SC ACHS [facility] PRN Reason: Protocol Last Admin: 08/21/17 11:51 Dose: Not Given Lisinopril (Zestril) 10 mg PO DAILY [facility] Last Admin: 08/21/17 09:42 Dose: 10 mg Magnesium Oxide (Mag-Ox) 400 mg PO BID [facility] Stop: 08/21/17 23:59 Last Admin: 08/21/17 09:41 Dose: 400 mg Metoprolol Tartrate (Lopressor) 50 mg PO BID [facility] Last Admin: 08/21/17 09:42 Dose: 50 mg Potassium Chloride (K-Dur 20 Meq Er Tab) 20 meq PO DAILY [facility] Last Admin: 08/21/17 09:42 Dose: 20 meq - Labs Labs: 08/21/17 05:30 08/21/17 05:30 PT 18.0 SECONDS (9.4-12.5) H 08/19/17 16:50 INR 1.56 (0.93-1.08) H 08/19/17 16:50 APTT 27.8 Seconds (25.1-36.5) 08/19/17 16:50 - Respiratory Exam Respiratory Exam: Rales - Cardiovascular Exam Cardiovascular Exam: REGULAR RHYTHM, Murmur - GI/Abdominal Exam GI & Abdominal Exam: Soft, Normal Bowel Sounds - Extremities Exam Extremities Exam: Normal Inspection - Neurological Exam Neurological Exam: Alert, Awake - Skin Skin Exam: Dry, Warm Assessment and Plan (1) CHF (congestive heart failure) Status: Acute (2) Paroxysmal atrial fibrillation Status: Suspected (3) Hypertension Status: Chronic (4) Anemia Status: Chronic (5) Gastric mass Status: Suspected - Assessment and Plan (Free Text) Plan: continue GI follow-up, possible EGD, monitor Hb/Hct, continue cardio consult, would not anticoagulate at present due to risk of GI bleed
[2017-08-21 12:18] LABS: HEPATITIS B SURFACE AG Negative (NEGATIVE)
[2017-08-21 12:23] LABS: HEPATITIS A IGM NEGATIVE (NEGATIVE); HEPATITIS B CORE AB NEGATIVE (NEGATIVE)
[2017-08-21 12:35] LABS: HEPATITIS C ANTIBODY NEGATIVE (NEGATIVE)
--- NOTE | 2017-08-21 20:39 | PN ---
DATE: 08/21/2017 LOCATION: Patient in room 260, bed 2. REASON FOR CONSULTATION AND FOLLOWUP: Atrial fibrillation, converted to multifocal atrial tachycardia, shortness of breath, congestive heart failure, hypertension, anemia, history of recent syncope, was admitted to [facility]. SUBJECTIVE: Patient states that shortness of breath has improved. Denies chest pain. Denies palpitations. She also states the palpitations has also improved. PHYSICAL EXAMINATION VITAL SIGNS: Blood pressure 105/59, respirations 19, pulse 62, temperature 97.7. HEENT: Head is normocephalic. Eyes, pupils are normal. Conjunctivae are pale. NECK: JVP low. Carotids are equal. THORAX: AP diameter normal. LUNGS: Few rales present on admission has improved. ABDOMEN: Soft. Bowel sounds are normal. EXTREMITIES: Patient has edema on the feet, which also has improved. LABORATORY DATA: WBC 11.8, hemoglobin 9.7, hematocrit 31.4. MC, MCH, MCHC also low. Platelets count 263. Sodium 138, potassium 4.1, BUN 43, creatinine 1.0, magnesium 1.8, random sugar 198, total bilirubin 1.4, AST 96, ALT 81, alkaline phosphatase 276. Liver enzymes since admission had been going gradually up. On admission, AST was 68 and ALT 57. CAT scan of the abdomen showed questionable gastric mass along with gallstones. No evidence of acute cholecystitis. Abdominal ultrasound also showed gallstones. CAT scan suggestive of no evidence of cholecystitis. Echocardiogram was done on 08/20/2017, which showed LV size normal, mild LV hypertrophy, mildly decreased LV systolic function, with LV ejection fraction of 45% to 50%. Left atrium and right atrium, both enlarged. Thickened mitral valve leaflets and aortic valve leaflets. Opening of both valves are adequate. [id number] aortic regurgitation. Moderate mitral regurgitation. Severe tricuspid regurgitation with RVSP 86 mmHg, suggestive of severe pulmonary hypertension. DIAGNOSES: Atrial fibrillation, rapid rate at my office. By the time patient came to emergency room, it converted to multifocal atrial rhythm, congestive heart failure secondary to hypertension, and valvular regurgitation disease and atrial fibrillation is multifactorial plus anemia iron deficiency type, rule out gastrointestinal bleeding, CAT scan suggestive of a mass in the stomach, gallstones, hepatic dysfunction; hypomagnesemia has improved with IV magnesium therapy. PLAN: Patient on metronidazole 500 mg IV every 8 hours, potassium 20 mEq daily, Lasix 40 mg IV daily, metoprolol 50 b.i.d., magnesium oxide 400 mg b.i.d., ceftriaxone 1 g IV daily, Zestril 10 mg p.o. daily. Patient already had been seen by Gastroenterology for evaluation of iron deficiency anemia and possible gastric mass. We will continue to follow closely with you. Eveline Leavitt MD
[2017-08-22] MEDS: metroNIDAZOLE IV 500 mg/100 ml 500 MG/100 ML BAG IVPB SCH ×3 (05:30→21:44)
[2017-08-22] MEDS: Insulin Reg-LOW-Coverage SC SCH ×4 (08:08→21:42)
[2017-08-22] MEDS: cefTRIAXone 1 gm 1 GM/100 ML BAG IVPB SCH (10:31)
[2017-08-22] MEDS: Potassium Chloride 20 mEq ER Tab PO SCH (10:31)
--- NOTE | 2017-08-22 10:52 | CP.PCM.PN ---
Subjective - Date & Time of Evaluation Date of Evaluation: 08/22/17 Time of Evaluation: 10:30 - Subjective Subjective: NAD, denies chest pain, no SOB, no melena, no BRBPR Objective - Vital Signs/Intake and Output Vital Signs (last 24 hours): Temp Pulse Resp BP Pulse Ox 98.3 F 67 18 133/72 97 08/22/17 05:44 08/22/17 10:31 08/22/17 05:44 08/22/17 10:31 08/22/17 05:44 Intake and Output: 08/22/17 08/22/17 06:59 18:59 Intake Total 240 Output Total 500 Balance -260 - Medications Medications: Current Medications Furosemide (Lasix) 20 mg PO DAILY [facility] Ceftriaxone Sodium (Rocephin 1 Gram Ivpb) 1 gm in 100 mls @ 100 mls/hr IVPB DAILY [facility] PRN Reason: Protocol Last Admin: 08/22/17 10:31 Dose: 100 mls/hr Metronidazole (Flagyl) 500 mg in 100 mls @ 100 mls/hr IVPB Q8 [facility] PRN Reason: Protocol Last Admin: 08/22/17 05:30 Dose: 100 mls/hr Insulin Human Regular (Humulin R Low) 0 units SC ACHS [facility] PRN Reason: Protocol Last Admin: 08/22/17 08:08 Dose: Not Given Lisinopril (Zestril) 10 mg PO DAILY [facility] Last Admin: 08/22/17 10:31 Dose: 10 mg Metoprolol Tartrate (Lopressor) 50 mg PO BID [facility] Last Admin: 08/22/17 10:31 Dose: 50 mg Potassium Chloride (K-Dur 20 Meq Er Tab) 20 meq PO DAILY [facility] Last Admin: 08/22/17 10:31 Dose: 20 meq - Labs Labs: 08/21/17 05:30 08/21/17 05:30 PT 18.0 SECONDS (9.4-12.5) H 08/19/17 16:50 INR 1.56 (0.93-1.08) H 08/19/17 16:50 APTT 27.8 Seconds (25.1-36.5) 08/19/17 16:50 - Respiratory Exam Respiratory Exam: Clear to Ausculation Bilateral, NORMAL BREATHING PATTERN - Cardiovascular Exam Cardiovascular Exam: REGULAR RHYTHM, Murmur - GI/Abdominal Exam GI & Abdominal Exam: Soft, Normal Bowel Sounds - Extremities Exam Extremities Exam: Normal Inspection - Neurological Exam Neurological Exam: Alert, Awake - Skin Skin Exam: Dry, Warm Assessment and Plan (1) CHF (congestive heart failure) Status: Acute (2) Paroxysmal atrial fibrillation Status: Suspected (3) Hypertension Status: Chronic (4) Anemia Status: Chronic (5) Gastric mass Status: Suspected - Assessment and Plan (Free Text) Plan: continue GI/cardio follow-up, possible EGD Thursday
--- NOTE | 2017-08-22 16:09 | PN ---
DATE: 08/22/2017 LOCATION: The patient is in room 260, bed 2. REASON FOR CONSULTATION AND FOLLOWUP: Atrial fibrillation, converted to multifocal atrial tachycardia; shortness of breath; congestive heart failure; hypertension; anemia; history of recent syncope, was admitted to the [facility]. CAT scan of abdomen shows questionable gastric mass, iron deficiency anemia. SUBJECTIVE: Patient states that her shortness of breath has much improved. Patient's edema on the feet, which was present on admission, also has improved. The patient denies chest pain. Her palpitation, which was present on admission, also has improved. PHYSICAL EXAMINATION: VITAL SIGNS: Blood pressure 136/77, respirations 18, pulse 69, and temperature 98.3. HEENT: Head is normocephalic. Eyes: Pupils are normal. Conjunctivae are pale. NECK: JVP low. Carotids are equal. THORAX: AP diameter normal. LUNGS: No significant rales. CARDIOVASCULAR: S1 and S2, and systolic murmur grade 3/6. No rub. ABDOMEN: Soft. Bowel sounds are normal. EXTREMITIES: No clubbing. No cyanosis. Edema on the feet has improved. LABORATORY DATA: WBC 11.8, hemoglobin 9.7, hematocrit 31.4, and platelets 263. Sodium 138, potassium 4.1. BUN 43, creatinine 1. Sugar 198. Bilirubin 1.4, AST 96, ALT , alkaline phosphatase 276. Total protein and albumin are normal. Prothrombin time 18 with INR 1.56 and PTT 27.8. DIAGNOSES: Atrial fibrillation, rapid rate in my office. By the time, patient came to emergency room, it converted into multifocal atrial rhythm. Congestive heart failure secondary to hypertension, valvular regurgitation, and atrial fibrillation. Anemia, multifocal atrial tachycardia, anemia is iron deficiency type, rule out gastrointestinal bleeding. CAT scan suggestive of a mass in the stomach, gallstones, hepatic dysfunction. PLAN: The patient is being followed by Gastroenterology. Patient is on metronidazole 500 mg IV every 8 hours, potassium 20 mEq daily, Lasix 40 IV daily, metoprolol 50 b.i.d., lisinopril 10 daily, ceftriaxone 1 g IV daily. The patient also seen by GI and patient also on lisinopril 10 mg daily. We will discontinue IV Lasix. We will change Lasix to 40 mg p.o. daily. Eveline Leavitt MD [facility] # [id number]
--- NOTE | 2017-08-23 05:44 | CON ---
DATE: HISTORY OF PRESENT ILLNESS: This patient was seen and evaluated. The patient is comfortable, now tolerating the diet. Denies any abdominal pain. PHYSICAL EXAMINATION: VITAL SIGNS: Temperature is 98.2, pulse 67, blood pressure 109/64, respirations 18. HEENT: Atraumatic and anicteric. NECK: Supple. HEART: S1 and S2 heard. LUNGS: Bilateral air entry present. ABDOMEN: Soft. There is no tenderness. LABORATORY DATA: No recent labs today; yesterday were WBC 11.8, hemoglobin 9.7, hematocrit 31.4, and platelets 263. IMPRESSION: This 87-year-old patient admitted with atrial fibrillation with rapid ventricular response, converted to multifocal atrial rhythm and congestive heart failure. The patient also found to have significant anemia, found to have a hemoglobin of 8.2, had received 2 units of packed RBC. The patient did have an abdominal ultrasound done because of abnormal LFTs, found to have thickened gallbladder wall measuring up to 1 cm with multiple gallstones. Subsequently, the patient had a CAT scan done, which did not show any acute inflammatory pathology in any of the gallbladder area. But however, it reported some abnormalities in the gastric antrum. Thickening, rule out any possible mass. RECOMMENDATION: Would recommend; 1. MRI to further evaluate the gallbladder wall thickening, which was noticed in the ultrasound. 2. Followup of the LFTs. The abnormal LFTs could be due to hepatic congestion, possibility of the CBD stone also has to be considered as the patient has multiple gallstones. 3. Anemia, rule out any GI source of blood loss. 4. CAT scan shows abnormalities in the gastric antral area to rule out any mass/lesion. Would benefit from the upper GI endoscopy, which we will consider after further optimization of the patient. Meanwhile, we will empirically place the patient on Protonix 40 mg daily. We will continue to closely follow up her care and suggest further management based on the clinical course. Johanny Silverio MD [id number]
[2017-08-23] MEDS: metroNIDAZOLE IV 500 mg/100 ml 500 MG/100 ML BAG IVPB SCH ×3 (05:51→22:08)
[2017-08-23] MEDS: Insulin Reg-LOW-Coverage SC SCH ×4 (07:54→21:58)
[2017-08-23] MEDS: cefTRIAXone 1 gm 1 GM/100 ML BAG IVPB SCH (09:02)
[2017-08-23] MEDS: Potassium Chloride 20 mEq ER Tab PO SCH (09:03)
--- NOTE | 2017-08-23 13:13 | CP.PCM.PN ---
Subjective - Date & Time of Evaluation Date of Evaluation: 08/23/17 Time of Evaluation: 13:00 - Subjective Subjective: NAD, no chest pain, no SOB, no N/V, no abd pain, no melena, no BRBPR Objective - Vital Signs/Intake and Output Vital Signs (last 24 hours): Temp Pulse Resp BP Pulse Ox 97.6 F 81 18 125/55 L 97 08/23/17 11:55 08/23/17 11:55 08/23/17 11:55 08/23/17 11:55 08/23/17 06:00 Intake and Output: 08/23/17 08/23/17 06:59 18:59 Intake Total 200 Output Total 0 Balance 200 - Medications Medications: Current Medications Furosemide (Lasix) 20 mg PO DAILY [facility] Last Admin: 08/23/17 09:02 Dose: 20 mg Ceftriaxone Sodium (Rocephin 1 Gram Ivpb) 1 gm in 100 mls @ 100 mls/hr IVPB DAILY [facility] PRN Reason: Protocol Last Admin: 08/23/17 09:02 Dose: 100 mls/hr Metronidazole (Flagyl) 500 mg in 100 mls @ 100 mls/hr IVPB Q8 [facility] PRN Reason: Protocol Last Admin: 08/23/17 05:51 Dose: 100 mls/hr Insulin Human Regular (Humulin R Low) 0 units SC ACHS [facility] PRN Reason: Protocol Last Admin: 08/23/17 07:54 Dose: Not Given Lisinopril (Zestril) 10 mg PO DAILY [facility] Last Admin: 08/23/17 09:03 Dose: 10 mg Metoprolol Tartrate (Lopressor) 50 mg PO BID [facility] Last Admin: 08/23/17 09:03 Dose: 50 mg Ondansetron HCl (Zofran Inj) 4 mg IVP Q6H PRN PRN Reason: Nausea/Vomiting Last Admin: 08/23/17 11:29 Dose: 4 mg Potassium Chloride (K-Dur 20 Meq Er Tab) 20 meq PO DAILY [facility] Last Admin: 08/23/17 09:03 Dose: 20 meq - Labs Labs: 08/21/17 05:30 08/21/17 05:30 PT 18.0 SECONDS (9.4-12.5) H 08/19/17 16:50 INR 1.56 (0.93-1.08) H 08/19/17 16:50 APTT 27.8 Seconds (25.1-36.5) 08/19/17 16:50 - Respiratory Exam Respiratory Exam: Clear to Ausculation Bilateral, NORMAL BREATHING PATTERN - Cardiovascular Exam Cardiovascular Exam: REGULAR RHYTHM, Murmur - GI/Abdominal Exam GI & Abdominal Exam: Soft, Normal Bowel Sounds - Extremities Exam Extremities Exam: Normal Inspection - Neurological Exam Neurological Exam: Alert, Awake, Oriented x3 - Skin Skin Exam: Dry, Warm Assessment and Plan (1) CHF (congestive heart failure) Status: Acute (2) Paroxysmal atrial fibrillation Status: Suspected (3) Hypertension Status: Chronic (4) Anemia Status: Chronic (5) Gastric mass Status: Suspected - Assessment and Plan (Free Text) Plan: continue GI/cardio follow-up, results MRCP, for possible EGD tomorrow
[2017-08-23] MEDS: Pantoprazole 40 mg EC Tab PO SCH (18:00)
--- NOTE | 2017-08-23 22:13 | PN ---
DATE: 08/23/2017 LOCATION: The patient in room 260, bed 2. REASON FOR CONSULTATION AND FOLLOWUP: Atrial fibrillation converted to multifocal atrial tachycardia, shortness of breath, congestive heart failure, hypertension, anemia, history of recent syncope, was admitted at [facility]. CAT scan of the abdomen shows questionable gastric mass, iron deficiency anemia. SUBJECTIVE: Patient states her breathing is much better. Denies palpitation now. Denies any chest pain. Patient has poor appetite, has been losing weight also. Denies any hematemesis, melena or abdominal pain. PHYSICAL EXAMINATION: VITAL SIGNS: Blood pressure 125/55, respirations 18, pulse 81, temperature 97.6. HEENT: Head is normocephalic. Eyes: Pupils are normal. Conjunctivae are pale. NECK: JVP low. Carotids are equal. THORAX: AP diameter normal. LUNGS: No rales. CARDIOVASCULAR: S1 and S2. Pansystolic murmur, grade 3/6. No rub. ABDOMEN: Soft. No organomegaly. Bowel sound normal. EXTREMITIES: No clubbing. No cyanosis. Edema on the feet has cleared. LABORATORY DATA: WBC 11.8, hemoglobin 9.7, hematocrit 31.4, and platelets 263. Random sugar 109. Sodium 138, potassium 4.1. BUN 43, creatinine 1. Total bilirubin 1.4, AST 96, ALT 81, alkaline phosphatase 276. DIAGNOSES: Atrial fibrillation, rapid rate in my office. By the time patient came to emergency room, it converted to multifocal atrial rhythm; congestive heart failure secondary to hypertension; valvular regurgitation; atrial fibrillation, anemia, iron deficiency; rule out gastrointestinal bleeding. CAT scan suspicious of mass in the stomach, gallstones, hepatic dysfunction. PLAN: From cardiac point of view, patient can go for endoscopy or any other GI procedure needed to diagnose patient had anemia and possible mass in the stomach. Patient is on metronidazole 500 mg IV every 8 hours, potassium 20 mEq p.o. daily, furosemide 20 mg p.o. daily, metoprolol 50 mg p.o. b.i.d., lisinopril 10 mg daily, ceftriaxone 1 g IV daily. We will give Protonix 40 mg p.o. daily. We will follow. Eveline Leavitt MD
[2017-08-24] MEDS ORDERED: Phytonadione 10 mg/ml Inj (Adult) SC STA ×2 (00:27→06:51)
--- NOTE | 2017-08-24 05:26 | PN ---
DATE: SUBJECTIVE: This patient was seen and evaluated earlier today. Patient is comfortable. She wants to go home. No complaints of any abdominal pain. PHYSICAL EXAMINATION: VITAL SIGNS: Temperature is 97.8, pulse 59, blood pressure 119/62. HEENT: Atraumatic, anicteric. NECK: Supple. HEART: S1, S2 heard. LUNGS: Bilateral air entry present. ABDOMEN: Soft. There is no tenderness. LABORATORY DATA: Hemoglobin 9.7, hematocrit 31.4, WBC 11.8, platelets 263. IMPRESSION: This 87-year-old patient is admitted with anemia with atrial fibrillation, rapid ventricular response, now was converted to multifocal atrial rhythm, had congestive heart failure, hypertension. The CAT scan shows suspected mass in the stomach, had a gallstone. Initial sonogram showed thickening of the gallbladder wall. Patient had a gallstone, has an elevated liver enzymes, request for magnetic resonance cholangiopancreatography, official report pending. Patient's INR is slightly on the higher side on admission. We will repeat the PT, PTT. Patient will be n.p.o. after midnight. Patient is scheduled for an upper gastrointestinal endoscopy in a.m. We will also follow up the magnetic resonance cholangiopancreatography, official report is still pending. Thank you very much for allowing us to participate in the care of the patient. Johanny Silverio MD
[2017-08-24 06:24] LABS: BASO # 0.04 K/mm3 (0.0-2.0); BASO % 0.4 % (0.0-3.0); EOS # 0.2 (0.0-0.7); GRAN # 7.11 (1.4-6.5); GRAN % 77.6 % (50.0-68.0); HEMOGLOBIN 9.3 g/dL (12.0-16.0); LYMPH # 1.1 (1.2-3.4); LYMPH % 12.4 % (22.0-35.0); MEAN CELL VOLUME 77.5 fl (80.0-105.0); MEAN CORPUSCULAR HEMOGLOBIN 23.5 pg (25.0-35.0); MEAN CORPUSCULAR HGB CONC 30.4 g/dl (31.0-37.0); MEAN PLATELET VOLUME 10.5 fl (7.0-11.0); MONO # 0.7 (0.1-0.6); MONO % 7.6 % (1.0-6.0); RBC 3.95 10^6/uL (3.5-6.1); RED CELL DISTRIBUTION WIDTH 19.4 % (11.5-14.5); WHITE BLOOD COUNT 9.2 10^3/ul (4.5-11.0)
[2017-08-24 06:47] LABS: INR 1.58 (0.93-1.08); PARTIAL THROMBOPLASTIN TIME 27.6 Seconds (25.1-36.5); PROTHROMBIN TIME 18.3 SECONDS (9.4-12.5)
[2017-08-24 07:01] LABS: ALB/GLOB RATIO 0.8 (1.1-1.8); ALBUMIN 2.8 g/dL (3.0-4.8); ALT/SGPT 55 U/L (7-56); AST/SGOT 28 U/L (14-36); BILIRUBIN,DIRECT 0.4 mg/dL (0.0-0.4); BLOOD UREA NITROGEN 29 mg/dL (7-21); GFR AFRICAN-AMERICAN > 60; GFR NON-AFRICAN AMERICAN > 60
[2017-08-24] MEDS: Insulin Reg-LOW-Coverage SC SCH ×2 (08:01→12:11)
--- NOTE | 2017-08-24 09:00 | CP.PCM.PN ---
Subjective - Date & Time of Evaluation Date of Evaluation: 08/24/17 Time of Evaluation: 08:45 - Subjective Subjective: NAD, no chest pain, no SOB, Objective - Vital Signs/Intake and Output Vital Signs (last 24 hours): Temp Pulse Resp BP Pulse Ox 98.5 F 74 18 131/70 100 08/24/17 05:59 08/24/17 05:59 08/24/17 05:59 08/24/17 05:59 08/24/17 05:59 Intake and Output: 08/24/17 08/24/17 06:59 18:59 Intake Total 300 Output Total 0 Balance 300 - Medications Medications: Current Medications Furosemide (Lasix) 20 mg PO DAILY [facility] Last Admin: 08/23/17 09:02 Dose: 20 mg Ceftriaxone Sodium (Rocephin 1 Gram Ivpb) 1 gm in 100 mls @ 100 mls/hr IVPB DAILY [facility] PRN Reason: Protocol Last Admin: 08/23/17 09:02 Dose: 100 mls/hr Insulin Human Regular (Humulin R Low) 0 units SC ACHS [facility] PRN Reason: Protocol Last Admin: 08/24/17 08:01 Dose: Not Given Lisinopril (Zestril) 10 mg PO DAILY [facility] Last Admin: 08/23/17 09:03 Dose: 10 mg Metoprolol Tartrate (Lopressor) 50 mg PO BID [facility] Last Admin: 08/23/17 18:00 Dose: 50 mg Ondansetron HCl (Zofran Inj) 4 mg IVP Q6H PRN PRN Reason: Nausea/Vomiting Last Admin: 08/23/17 11:29 Dose: 4 mg Pantoprazole Sodium (Protonix Ec Tab) 40 mg PO DAILY [facility] Last Admin: 08/23/17 18:00 Dose: 40 mg Potassium Chloride (K-Dur 20 Meq Er Tab) 20 meq PO DAILY [facility] Last Admin: 08/23/17 09:03 Dose: 20 meq - Labs Labs: 08/24/17 05:00 08/24/17 05:00 PT 18.3 SECONDS (9.4-12.5) H 08/24/17 05:00 INR 1.58 (0.93-1.08) H 08/24/17 05:00 APTT 27.6 Seconds (25.1-36.5) 04/02/18 05:00 - Respiratory Exam Respiratory Exam: Clear to Ausculation Bilateral, NORMAL BREATHING PATTERN - Cardiovascular Exam Cardiovascular Exam: REGULAR RHYTHM, Murmur - GI/Abdominal Exam GI & Abdominal Exam: Soft, Normal Bowel Sounds - Extremities Exam Extremities Exam: Normal Inspection - Neurological Exam Neurological Exam: Alert, Awake - Skin Skin Exam: Dry, Warm Assessment and Plan (1) CHF (congestive heart failure) Status: Acute (2) Paroxysmal atrial fibrillation Status: Suspected (3) Hypertension Status: Chronic (4) Anemia Status: Chronic (5) Gastric mass Status: Suspected - Assessment and Plan (Free Text) Plan: for EGD today, result MRCP pending
[2017-08-24] MEDS ORDERED: Magnesium Sulfate 1 gm in D5W 1 GM/100 ML BAG IVPB ONE (09:02)
[2017-08-24] MEDS ORDERED: Potassium Chloride 10 mEq ER Tab PO SCH (09:15)
[2017-08-24] MEDS: Pantoprazole 40 mg EC Tab PO SCH (09:26)
[2017-08-24] MEDS ORDERED: Propofol 10 mg/ml Inj (20 ML) ONE (10:06)
[2017-08-24] MEDS ORDERED: Sodium Chloride 0.9% 1,000 ML IV SCH (10:15)
[2017-08-24 10:42] VITALS: O2SAT 98
[2017-08-24] MEDS: cefTRIAXone 1 gm 1 GM/100 ML BAG IVPB SCH (11:35)
--- NOTE | 2017-08-24 13:34 | PN ---
DATE: 08/24/2017 LOCATION: The patient is in room 260, bed 2. REASON FOR CONSULTATION AND FOLLOWUP: Atrial fibrillation converted to multifocal atrial tachycardia, congestive heart failure, hypertension, anemia, history of recent syncope, admitted to [facility]. CAT scan of the abdomen shows questionable gastric mass, iron deficiency anemia, weight loss, loss of appetite. SUBJECTIVE: Patient's palpitation, shortness of breath has improved with treatment. Patient denies any chest pain. Patient lying flat in bed without shortness of breath. PHYSICAL EXAMINATION: VITAL SIGNS: Blood pressure 131/70, respirations 18, pulse 71, temperature 98.5. HEENT: Head is normocephalic. Eyes: Pupils are normal. Conjunctivae slightly pale. NECK: JVP low. Carotids equal. THORAX: AP diameter normal. LUNGS: Clear. CARDIOVASCULAR: Pansystolic murmur, grade 3/6. No rub. ABDOMEN: Soft. Bowel sounds normal. EXTREMITIES: Edema in the feet has improved. LABORATORY DATA: WBC 9.2 hemoglobin 9.3, hematocrit 30.6 and platelets 217. Sodium 135, potassium 4.7. BUN 29, creatinine 0.8, magnesium is 1.4. Total protein 6.2, albumin 2.8. DIAGNOSES: Atrial fibrillation, rapid rate in my office. By the time patient came to emergency room, it converted to multifocal atrial rhythm; congestive heart failure secondary to hypertension; valvular regurgitation; atrial fibrillation, anemia ,which is iron deficiency type; rule out gastrointestinal bleeding. CAT scan suspicious of mass in the stomach, gallstones, hepatic dysfunction. Liver enzymes are normal today, hypomagnesemia. PLAN: We will give magnesium sulfate IV and patient going for endoscopy for possible liver mass evaluation. Furosemide 20 mg p.o. daily, potassium 20 p.o. daily, ceftriaxone 1 g IV daily, lisinopril 10 mg daily. We will reduce potassium dose to 10 mEq p.o. daily. From cardiac point of view, patient can go for endoscopy as moderate risk or any other GI procedures, she can go for it. Eveline Leavitt MD
--- NOTE | 2017-08-24 14:35 | MRI ---
PROCEDURE: Magnetic Resonance Cholangiopancreatography HISTORY: Abnormal liver function tests COMPARISON: None available. TECHNIQUE: Multiplanar, multisequence MR images of the abdomen were obtained, including heavily T2 weighted MRCP images of the biliary system. Rotating maximum intensity projection images of the biliary system were generated. FINDINGS: MRCP: The common bile duct is of a normal caliber. No evidence of choledocholithiasis. No intrahepatic biliary ductal dilatation. LIVER: Unremarkable. GALLBLADDER: Gallstones. No significant wall thickening SPLEEN: Unremarkable. PANCREAS: Unremarkable. ADRENALS: Unremarkable. KIDNEYS: Unremarkable. AORTA: No aneurysm. ASCITES: None. OTHER FINDINGS: The report concurs with the preliminary [facility] report IMPRESSION: Normal caliber common duct. No evidence of common duct stones.
[2017-08-24 14:44] VITALS: BP 108/51; RESP 18; TEMP 97.6
[2017-08-24 15:51] VITALS: PULSE 58
== END 2017-08-24 16:20 | disposition home or self-care (01) | DRG 812 ==
LOC: ED 16:37 → ERH 19:14 → 2RNO 21:45
PROVIDERS: ADMIT Internal Medicine; ATTEND Internal Medicine
PROC: 30233N1 Transfusion of Nonautologous Red Blood Cells into Peripheral Vein, Percutaneous Approach (ICD-10-PCS; principal; 2017-08-20)
PROC: 0DJ08ZZ Inspection of Upper Intestinal Tract, Via Natural or Artificial Opening Endoscopic (ICD-10-PCS; 2017-08-24)
DX: D50.9 Iron deficiency anemia, unspecified (principal); I47.1 Supraventricular tachycardia; I48.0 Paroxysmal atrial fibrillation; I11.0 Hypertensive heart disease with heart failure; I50.9 Heart failure, unspecified; E11.9 Type 2 diabetes mellitus without complications; I35.1 Nonrheumatic aortic (valve) insufficiency; E83.42 Hypomagnesemia; K20.9 Esophagitis, unspecified; K44.9 Diaphragmatic hernia without obstruction or gangrene; K29.50 Unspecified chronic gastritis without bleeding; K80.20 Calculus of gallbladder without cholecystitis without obstruction; K40.90 Unilateral inguinal hernia, without obstruction or gangrene, not specified as recurrent; R63.4 Abnormal weight loss; Z68.22 Body mass index [BMI] 22.0-22.9, adult; Z86.73 Personal history of transient ischemic attack (TIA), and cerebral infarction without residual deficits

== ENCOUNTER 2017-08-30 12:30 | Observation (INO) | payer MEDICARE, OTHER ==
--- NOTE | 2017-08-30 12:46 | ED PDOC ---
Arrival/HPI - General Chief Complaint: Shortness Of Breath Time Seen by Provider: 08/30/17 12:34 Historian: Patient, Family (Son) - History of Present Illness Time/Duration: Other (approximately 2 weeks) Symptom Onset: Gradual Symptom Course: Worsening Severity Level: Moderate Activities at Onset: Rest Associated Symptoms (Text): 08/30/17 12:44 Patient complains of approximately a two-week history of increasing shortness of breath. Worse when lying down. No chest pain or palpitations. No cough. No fever or chills. No sputum production. No URI. No travel or exposure. No abdominal pain nausea or vomiting. No injury or trauma. Past Medical History - Cardiac Hx Cardiac Disorders: Yes Hx Heart Murmur: Yes Hx Hypertension: Yes - Pulmonary Hx Respiratory Disorders: Yes (flu) Hx Pneumonia: Yes - Neurological Hx Neurological Disorder: Yes - HEENT Hx HEENT Disorder: No - Renal Hx Renal Disorder: No - Endocrine/Metabolic Hx Endocrine Disorders: No - Hematological/Oncological Hx Blood Transfusions: No Hx Blood Transfusion Reaction: No - Integumentary Hx Dermatological Disorder: No - Musculoskeletal/Rheumatological Hx Musculoskeletal Disorders: Yes (falls) Hx Arthritis: Yes Hx Falls: No Hx Unsteady Gait: Yes - Gastrointestinal Hx Gastrointestinal Disorders: Yes Hx Gastroesophageal Reflux: Yes - Genitourinary/Gynecological Hx Genitourinary Disorders: No - Psychiatric Hx Psychophysiologic Disorder: No Hx Substance Use: No - Anesthesia Hx Anesthesia Reactions: No Hx Malignant Hyperthermia: No Family/Social History - Physician Review Nursing Documentation Reviewed: Yes Family/Social History: Unknown Family HX Smoking Status: Never Smoked Hx Alcohol Use: No Hx Substance Use: No Allergies/Home Meds Allergies/Adverse Reactions: Allergies No Known Allergies Allergy (Verified 08/30/17 12:49) Home Medications: Home Meds Medication Instructions Recorded Confirmed Acetaminophen/Butalbital/Caf 1 tab PO 08/23/17 [Fioricet] Aspirin 08/23/17 Cholecalciferol (Vitamin D3) 2,000 unit PO 08/23/17 [Vitamin D3] Cyanocobalamin (Vitamin B-12) 3,000 mcg PO 08/23/17 [Vitamin B-12] Ferrous Sulfate [Feosol] 325 mg PO 08/23/17 Furosemide [Lasix] 20 mg PO 08/23/17 Lipitor 08/23/17 Losartan Potassium [Cozaar] 100 mg PO 08/23/17 Losartan/Hydrochlorothiazide 1 tab PO 08/23/17 [Hyzaar 100-25 Tablet] Metoprolol Succinate [Toprol XL] 25 mg PO 08/23/17 Omeprazole 40 mg PO 08/23/17 Simvastatin [Zocor] 20 mg PO 08/23/17 amLODIPine [Norvasc] 10 mg PO 08/23/17 traMADol [Ultram] 50 mg PO 08/23/17 Review of Systems - Physician Review All systems were reviewed & negative as marked: Yes - Review of Systems Constitutional: Fatigue. absent: Fevers Respiratory: SOB. absent: Cough, Sputum, Wheezing Cardiovascular: absent: Chest Pain, Palpitations, Syncope Gastrointestinal: absent: Abdominal Pain, Nausea, Vomiting Neurological: absent: Headache, Dizziness, Focal Weakness Physical Exam Vital Signs Temp Pulse Resp BP Pulse Ox 08/30/17 16:06 99 H 16 176/92 H 98 08/30/17 13:01 18 98 08/30/17 12:41 98.7 F 84 18 166/90 H 99 Temperature: Afebrile Blood Pressure: Hypertensive Pulse: Regular Respiratory Rate: Normal Appearance: Positive for: Well-Appearing, Non-Toxic, Uncomfortable Pain Distress: None Mental Status: Positive for: Alert and Oriented X 3 - Systems Exam Head: Present: Atraumatic, Normocephalic Pupils: Present: PERRL Extroacular Muscles: Present: EOMI Conjunctiva: Present: Normal Ears: Present: NORMAL TM, Normal Canal. No: Erythema Mouth: Present: Moist Mucous Membranes Pharnyx: No: ERYTHEMA, EXUDATE, TONSILS ENLARGED Neck: Present: Normal Range of Motion Respiratory/Chest: Present: Clear to Auscultation, Good Air Exchange, Decreased Breath Sounds. No: Respiratory Distress, Accessory Muscle Use, Wheezes, Rales, Retracting, Rhonchi, Tachypneic Cardiovascular: Present: Regular Rate and Rhythm, Normal S1, S2. No: Murmurs Abdomen: No: Tenderness, Distention, Peritoneal Signs, Rebound, Guarding Back: Present: Other (kyphoscoliosis) Upper Extremity: Present: Normal Inspection. No: Cyanosis, Edema Lower Extremity: Present: Normal Inspection. No: Edema Neurological: Present: GCS=15, CN II-XII Intact, Speech Normal, Motor Func Grossly Intact Skin: Present: Warm, Dry, Normal Color. No: Rashes Psychiatric: Present: Alert, Oriented x 3, Normal Insight, Normal Concentration Medical Decision Making ED Course and Treatment: 08/30/17 12:54 EKG shows normal sinus rhythm rate approximately [address] or T-wave changes 08/30/17 17:[address] Barajas. Consults for cardiology and pulmonary have been placed for him. The BNP is about at her last visit. D-dimer is elevated, but CTA is negative for pulmonary embolus as read by the radiologist. - Lab Interpretations Lab Results: 08/30/17 13:00 08/30/17 13:00 Lab Results 08/30/17 13:00: Sodium 138, Potassium 4.7, Chloride 101, Carbon Dioxide 26, Anion Gap 16, BUN 16, Creatinine 0.7, Est GFR ( Amer) > 60, Est GFR (Non- Af Amer) > 60, Random Glucose 135 H, Calcium 9.7, Total Bilirubin 0.9, AST 28, ALT 33, Alkaline Phosphatase 95, Lactate Dehydrogenase 701 H, Total Creatine Kinase 23 L, Troponin I 0.06, NT-Pro-B Natriuret Pep 8050 H, Total Protein 7.8, Albumin 3.7, Globulin 4.1, Albumin/Globulin Ratio 0.9 L 08/30/17 13:00: PT 14.1 H, INR 1.23 H, APTT 28.3, D-Dimer, Quantitative 953 H 08/30/17 13:00: WBC 8.4, RBC 4.38, Hgb 10.3 L, Hct 33.8 L, MCV 77.2 L, MCH 23.5 L, MCHC 30.5 L, RDW 19.7 H, Plt Count 209, MPV 10.2, Gran % 78.5 H, Lymph % ( Auto) 12.5 L, Jefferson % (Auto) 6.9 H, Eos % (Auto) 1.7, Baso % (Auto) 0.4, Gran # 6.60 H, Lymph # (Auto) 1.1 L, Jefferson # (Auto) 0.6, Eos # (Auto) 0.1, Baso # (Auto ) 0.03 - RAD Interpretation Radiology Orders: 08/30/17 12:42 CHEST PORTABLE [RAD] Stat 04/08/18 13:58 ANGIO CHEST PE PROTOCOL [CT] Stat - Medication Orders Current Medication Orders: Furosemide (Lasix) 40 mg IVP ONCE ONE Stop: 08/30/17 17:35 Disposition/Present on Arrival - Present on Arrival Any Indicators Present on Arrival: No History of DVT/PE: No History of Uncontrolled Diabetes: No Urinary Catheter: No History of Decub. Ulcer: No History Surgical Site Infection Following: None - Disposition Have Diagnosis and Disposition been Completed?: Yes Diagnosis: CHF (congestive heart failure), Dyspnea Disposition: HOSPITALIZED Disposition Time: 17:38 Patient Plan: Observation, Telemetry Condition: FAIR Discharge Instructions (ExitCare): Heart Failure (ED) Forms: [employer] (Maltese)
[2017-08-30 13:12] LABS: BASO # 0.03 K/mm3 (0.0-2.0); BASO % 0.4 % (0.0-3.0); EOS # 0.1 (0.0-0.7); EOS % 1.7 % (1.5-5.0); GRAN # 6.6 (1.4-6.5); GRAN % 78.5 % (50.0-68.0); HEMOGLOBIN 10.3 g/dL (12.0-16.0); LYMPH # 1.1 (1.2-3.4); LYMPH % 12.5 % (22.0-35.0); MEAN CELL VOLUME 77.2 fl (80.0-105.0); MEAN CORPUSCULAR HEMOGLOBIN 23.5 pg (25.0-35.0); MEAN CORPUSCULAR HGB CONC 30.5 g/dl (31.0-37.0); MEAN PLATELET VOLUME 10.2 fl (7.0-11.0); MONO # 0.6 (0.1-0.6); MONO % 6.9 % (1.0-6.0); RBC 4.38 10^6/uL (3.5-6.1); RED CELL DISTRIBUTION WIDTH 19.7 % (11.5-14.5); WHITE BLOOD COUNT 8.4 10^3/ul (4.5-11.0)
[2017-08-30 13:42] LABS: INR 1.23 (0.93-1.08); PARTIAL THROMBOPLASTIN TIME 28.3 Seconds (25.1-36.5); PROTHROMBIN TIME 14.1 SECONDS (9.4-12.5)
[2017-08-30 13:54] LABS: ALB/GLOB RATIO 0.9 (1.1-1.8); ALBUMIN 3.7 g/dL (3.0-4.8); ALT/SGPT 33 U/L (7-56); AST/SGOT 28 U/L (14-36); BLOOD UREA NITROGEN 16 mg/dL (7-21); CALCIUM 9.7 mg/dL (8.4-10.5); GFR AFRICAN-AMERICAN > 60; GFR NON-AFRICAN AMERICAN > 60
[2017-08-30 13:59] LABS: B-TYPE NATRIURETIC PEPTIDE 8050 pg/mL (0-450); TROPONIN I 0.06 ng/mL
[2017-08-30] MEDS ORDERED: Iodixanol 320 MG/ML 100 ML BOTTLE IV ONE ×2 (14:36→15:40)
--- NOTE | 2017-08-30 16:15 | CT ---
PROCEDURE: CT Chest with contrast (Pulmonary Angiogram) HISTORY: elevated dimer COMPARISON: None available. TECHNIQUE: Axial computed tomography images were obtained of the chest in the pulmonary arterial phase of enhancement. Coronal and sagittal reformatted images were created and reviewed. Intravenous contrast dose: 100 cc of Visipaque Radiation dose: Total exam DLP = 262 mGy-cm. This CT exam was performed using one or more of the following dose reduction techniques: Automated exposure control, adjustment of the mA and/or kV according to patient size, and/or use of iterative reconstruction technique. FINDINGS: PULMONARY ARTERIES: Unremarkable. No pulmonary embolism. AORTA: No acute findings. No thoracic aortic aneurysm. LUNGS: Unremarkable. No nodule, mass or pulmonary consolidation. Minimal interstitial changes are seen. PLEURAL SPACES: Unremarkable. No effusion or pneuomothorax. HEART: There is cardiomegaly. There is dilatation of the pulmonary arteries as well as the aorta. LYMPH NODES: No lymphadenopathy. BONES, CHEST WALL: Unremarkable. No fracture or destructive lesion OTHER FINDINGS: Unremarkable. IMPRESSION: No evidence of pulmonary emboli
[2017-08-30 19:22] VITALS: BMI 22.6
--- NOTE | 2017-08-31 00:33 | CARD ---
APPROVED REPORT EKG Measurement Heart [id number] <Conclusion> Normal sinus rhythm Possible Left atrial enlargement Left axis deviation Abnormal ECG
[2017-08-31 09:41] LABS: IRON 30 ug/dL (45-180)
[2017-08-31 09:45] LABS: ALB/GLOB RATIO 0.9 (1.1-1.8); ALBUMIN 3.5 g/dL (3.0-4.8); ALT/SGPT 29 U/L (7-56); AST/SGOT 25 U/L (14-36); BLOOD UREA NITROGEN 15 mg/dL (7-21); GFR AFRICAN-AMERICAN > 60; GFR NON-AFRICAN AMERICAN > 60; HDL CHOLESTEROL 30 mg/dL (29-60)
[2017-08-31 09:50] LABS: % IRON SATURATION 9 % (20-55); BASO # 0.06 K/mm3 (0.0-2.0); BASO % 0.8 % (0.0-3.0); EOS # 0.2 (0.0-0.7); GRAN # 5.19 (1.4-6.5); GRAN % 70.1 % (50.0-68.0); HEMOGLOBIN 10.7 g/dL (12.0-16.0); LYMPH % 14.1 % (22.0-35.0); MEAN CELL VOLUME 76.3 fl (80.0-105.0); MEAN CORPUSCULAR HEMOGLOBIN 23.7 pg (25.0-35.0); MEAN CORPUSCULAR HGB CONC 31.1 g/dl (31.0-37.0); MEAN PLATELET VOLUME 10.3 fl (7.0-11.0); MONO # 0.9 (0.1-0.6); RBC 4.51 10^6/uL (3.5-6.1); RED CELL DISTRIBUTION WIDTH 19.4 % (11.5-14.5); TOTAL IRON BINDING CAPACITY 332 ug/dL (265-497); TROPONIN I 0.06 ng/mL; WHITE BLOOD COUNT 7.4 10^3/ul (4.5-11.0)
[2017-08-31 09:51] LABS: LDL CHOLESTEROL 168 mg/dL (0-129)
[2017-08-31 10:00] LABS: T4 10.4 ug/dL (5.5-11.0)
[2017-08-31 12:58] LABS: FOLATE 17.9 ng/mL
--- NOTE | 2017-08-31 14:28 | HP ---
HISTORY OF PRESENT ILLNESS: The patient is an 87-year-old female admitted through the emergency department on 08/30/2017 to the telemetry unit for increasing shortness of breath. The patient was recently admitted on 08/19/2017 for an episode of atrial fibrillation and congestive heart failure. The patient reports increasing shortness of breath for the past few days with orthopnea. She denies any edema. She denies any chest pain. There is no nausea, no vomiting or diarrhea. No fever. No chills. No cough. No syncope. PAST MEDICAL HISTORY: Includes hypertension, anemia of known etiology. She is status post transfusion 2 units packed red cells on the last admission, type 2 diabetes mellitus. There is no history of MN in the past. She was admitted to [facility] in 05/2017 for syncope, transesophageal echocardiogram showed severe aortic regurgitation. PAST SURGICAL HISTORY: The patient has no significant past surgical history. CURRENT MEDICATIONS: Include Lasix 20 mg daily, Zocor 20 mg daily, losartan 100 mg daily, aspirin 81 mg daily and omeprazole 20 mg daily. SOCIAL HISTORY: The patient has no history of tobacco or alcohol use. She is independent with ADLs and IADLs. FAMILY HISTORY: Noncontributory. ALLERGIES: THE PATIENT HAS NO KNOWN DRUG ALLERGIES. REVIEW OF SYSTEMS: Essentially as above. PHYSICAL EXAMINATION: GENERAL: The patient is a well-developed, slightly cachectic female in no acute distress. VITAL SIGNS: Blood pressure 151/84, pulse 74, temperature 97.6, respiratory rate 20. HEENT: Head is normocephalic, atraumatic. Pupils equal, round, reactive to light. Extraocular movements intact. NECK: Supple. No thyromegaly. No carotid bruit. No adenopathy. LUNGS: Clear. HEART: Regular rate and rhythm with a grade 3/6 systolic murmur. Occasional ectopic beats. ABDOMEN: Soft, nontender. Bowel sounds are normoactive. EXTREMITIES: Without cyanosis, clubbing or edema. NEUROLOGIC: The patient is awake and oriented x3 without focal sensory or motor deficits. SKIN: Warm and dry. LABORATORY DATA: WBC 7.4, hemoglobin 10.7, hematocrit 34.4. Sodium 136, potassium 4.3, chloride 97, CO2 of 31, BUN 15, creatinine 0.8, magnesium slightly low at 1.2, phosphorus 5.2, LDH 701. BNP is markedly elevated at 8050. Troponin is 0.[address] angio of the chest was performed, which showed no evidence of pulmonary embolism. IMPRESSION: 1. Congestive heart failure. 2. Paroxysmal atrial fibrillation. 3. Hypertension, hypertensive cardiovascular disease. 4. Severe aortic regurgitation. 5. Anemia with elevated liver function tests, rule out gastrointestinal malignancy. PLAN: The patient is being monitored on telemetry unit. We will obtain Cardiology consultation with Dr. Leavitt, Pulmonary consultation with Dr. Crespo as well as GI consultation with Dr. Silverio. We will continue losartan and Lasix, heart-healthy diet. Social work for discharge planning. LINDA Vincent MD
--- NOTE | 2017-08-31 19:01 | PN ---
DATE: 08/31/2017 REASON FOR CONSULTATION: Followup cardiac evaluation, paroxysmal atrial fibrillation, shortness of breath, anemia. HISTORY OF PRESENT ILLNESS: An 87-year-old female with past medical history significant for hypertension, anemia, who recently admitted with MAT, multifocal atrial tachycardia, atrial fibrillation, shortness of breath and severe anemia, status post endoscopy and then discharged home. The patient was scheduled a stress test as outpatient, but the patient did not get chance to go there. Admitted yesterday with complaint of shortness of breath. Denies any chest pain. Denies any palpitation. PAST MEDICAL HISTORY: Significant for diabetes and hypertension. SOCIAL HISTORY: Denies any history of alcohol abuse, but complain of loss of weight. Last admission on 08/19/2017. PREVIOUS CARDIAC WORKUP: As follows; the patient had echocardiography on 08/20/2017 that showed decreased LV function, ejection fraction 45-50%, left atrium and right atrium both enlarged, mitral annulus heavily calcified, thickened mitral valve leaflet, thickened aortic valve leaflet. Peak gradient across the aortic valve 17 mm gradient. Moderate to severe aortic regurgitation. Severe tricuspid regurgitation. RV systolic pressure 86 consistent with severe pulmonary hypertension. The patient had endoscopy on last admission that shows esophageal ulceration, esophagitis and hiatal hernia. REVIEW OF SYSTEMS: As per HPI. PHYSICAL EXAMINATION: VITAL SIGNS: Temperature afebrile, heart rate 64, blood pressure 151/84. HEENT: PERRLA. Extraocular muscles intact. NECK: Supple. No carotid bruit or thyromegaly. CHEST: Clear to auscultation. HEART: S1 and S2 regular. ABDOMEN: Soft. EXTREMITIES: Clubbing and cyanosis negative. LABORATORY DATA: EKG shows normal sinus. Telemetry shows multifocal atrial tachycardia. Blood workup as follows; WBC 7.4, hemoglobin 10.7, hematocrit 34.4, platelet count 219. Chemistry shows sodium 133, potassium 4.3, chloride 97, carbon dioxide 31, anion gap of 12, BUN 15, creatinine 0.8. BNP 8050. TSH 4.67, [id number] 111, cholesterol 231, LDL 168, HDL 30. IMPRESSION: Hypertension, hyperlipidemia, diabetes. Admitted on anemia. Last time with esophagitis, hiatal hernia, ulceration and moderate mitral regurgitation. Decreased left ventricular function, ejection fraction 45-50%. Moderate to severe aortic regurgitation. Severe tricuspid regurgitation. Severe pulmonary hypertension. Esophageal ulceration. RECOMMENDATION: We will add low dose of beta-cristian because the patient came in last time with atrial fibrillation went into multifocal atrial tachycardia. Blood pressure is elevated. We will give low dose of verapamil and monitor closely. We will follow with you. We will consider a stress test tomorrow because last time it was scheduled. We will schedule as outpatient with the patient went home. We will follow with you. We will get hemoglobin A1c as well. Thank you, Dr. Barajas, for providing us the opportunity in taking care of the patient, Clarissa Best. Eveline Oneal MD
--- NOTE | 2017-08-31 19:54 | RAD ---
HISTORY: sob COMPARISON: 08/19/2017 FINDINGS: LUNGS: No active pulmonary disease. PLEURA: No significant pleural effusion identified, no pneumothorax apparent. CARDIOVASCULAR: Moderate cardiomegaly. Mild vascular congestion OSSEOUS STRUCTURES: No significant abnormalities. VISUALIZED UPPER ABDOMEN: Normal. OTHER FINDINGS: None. IMPRESSION: Moderate cardiomegaly. Mild vascular congestion
--- NOTE | 2017-08-31 20:46 | CON ---
DATE: 08/31/2017 REFERRING PHYSICIAN: Dr. Barajas. REASON FOR CONSULTATION: Shortness of breath. HISTORY OF PRESENT ILLNESS This is an 87-year-old female with past medical history significant for hypertension, anemia, cardiac arrhythmia, history of paroxysmal atrial fibrillation, valvular heart disease, severe pulmonary hypertension, comes in to ER with shortness of breath, some leg swelling. No fever. No hemoptysis or emesis. No hematuria. No diarrhea reported. PAST MEDICAL HISTORY Cardiomyopathy with valvular heart disease especially aortic stenosis, diabetes, hypertension, pulmonary hypertension, anemia, history of atrial fibrillation with multifocal cardiac arrhythmia. SOCIAL HISTORY: Nonsmoker, nondrinker. FAMILY HISTORY: No significant cardiopulmonary disease reported. ALLERGIES: None known. MEDICATIONS: She is on Calan 40 mg three times a day, Cozaar 10 mg daily, Lasix 40 mg daily. REVIEW OF SYSTEMS: No headache, no rhinitis. Does not know if she snores, daytime sleepy. No chest pain, short of breath. No nausea, no vomiting, no diarrhea. Had leg swelling which is improved. PHYSICAL EXAMINATION: GENERAL: Lying in the bed, no acute distress. VITAL SIGNS: Temp is 98, heart rate 82, respiratory rate is 20, blood pressure 130/80, pulse ox 99% on room air. HEENT: Moist mucous membranes. Small oral cavity. Crowded airway. NECK: Supple. No JVD. LUNGS: Have a few crackles at the bases. HEART: S1, S2 with murmur. ABDOMEN: Soft, nontender. No organomegaly. EXTREMITIES: No significant edema. NEUROLOGIC: Awake and follows simple commands. LABORATORY DATA: Shows hemoglobin 10.7, hematocrit 34.4, WBC 7.4, platelet is 219. INR 1.23. PTT is 28. D-dimer is 953. Sodium 136, potassium 4.3, chloride 97, bicarbonate 31, BUN 15, creatinine 0.8, glucose 97, calcium is 10, phosphorus 5.2, magnesium 1.2. Iron is 30, ferritin is 51. AST 25, ALT 29, alk phos is 100. Troponin less than 0.03. C-reactive protein 12.9. ProBNP 8050. Albumin 3.5, globulin is 4, triglyceride is 111, cholesterol is 231, thyroxine is 10.4, TSH is 4.67. Folate is 17. B12 is 763. Has a CT of the chest done which was CTA with D-dimer positive, which shows no evidence of pulmonary embolism. Dilatation of the pulmonary arteries as well as the aorta. IMPRESSION AND PLAN: Cardiomyopathy, probably valvular disease, need to rule out coronary artery disease, severe pulmonary hypertension, history of paroxysmal atrial fibrillation, history of anemia, hypertension. Agree with the present management. Continue diuretics, calcium channel cristian. May need gastric prophylaxis, deep venous thrombosis prophylaxis. Should do sleep study upon discharge as outpatient to assure there is no nocturnal desaturation. Cardiac workup is in progress. Continue supplemental oxygen if pulse ox less than 92%. Thank you and we will follow with you. Eveline Crespo MD
--- NOTE | 2017-09-01 03:14 | CON ---
DATE: 08/31/2017 REASON FOR CONSULTATION: History of anemia, esophageal ulceration. HISTORY OF PRESENT ILLNESS: This is an 87-year-old patient with a past medical history of hypertension, diabetes mellitus, was admitted recently with atrial fibrillation with rapid ventricular response. The patient was found to be anemic and also history of weight loss. The patient has abnormal LFTs also. Ultrasound shows some thickening of the gallbladder wall with multiple gallstones. No evidence of acute cholecystitis. CAT scan suspected some mass in the stomach and right inguinal hernia. The patient subsequently had an MRI done,which showed normal CBD and gallstones. The patient was empirically treated with IV antibiotics and the patient did have an endoscopy done, which showed circumferential grade D ulceration to the distal esophagus. The ulceration was extending about 3 cm. Suspected of some food impaction in the past. Biopsies were not done. The patient was found to have progressive increased shortness of breath for the last few days and came to the emergency room, admitted with decompensated CHF. PAST MEDICAL HISTORY: The patient's other past medical history is significant for coronary artery disease, aortic stenosis, diabetes mellitus, hypertension, pulmonary hypertension, anemia, history of atrial fibrillation. ALLERGIES: NO KNOWN DRUG ALLERGY. SOCIAL HISTORY: Denies smoking or alcohol. REVIEW OF SYSTEMS: Positive as above. Other systems reviewed. PHYSICAL EXAMINATION: GENERAL: The patient is lying on the bed, not in acute distress. VITAL SIGNS: Temperature 98.1, blood pressure 120/65, respirations 20, O2 saturation 96%. HEENT: Atraumatic, anicteric. NECK: Supple. HEART: S1 and S2 heard. There is a systolic murmur present at the base. LUNGS: Bilateral air entry present. ABDOMEN: Soft. There is no mass palpable. No tenderness. EXTREMITIES: No cyanosis, no clubbing. NEUROLOGIC: Alert and oriented. Moves all extremities. LABORATORY DATA: Hemoglobin 10.7, hematocrit 34.4, WBC 7.4, platelets 219. Chemistry: Magnesium is 1.2, total bilirubin 1.4. LFTs normalized. It was elevated before. IMPRESSION: This 87-year-old patient admitted with severe anemia, decompensated congestive heart failure, history of paroxysmal atrial fibrillation. The patient has severe pulmonary hypertension. The patient's endoscopy showed circumferential ulceration. The patient has been on omeprazole 40 mg daily. The patient did receive magnesium. The patient's magnesium was 1.2 prior to be being supplemented. Hemoglobin is now stable. Hemoglobin was 8.2. The patient has significant ulceration, grade D esophageal ulcerations during the last endoscopy. The patient has poor dentition. One of the clinical suspicion was the food impaction, which caused the compression. The patient needs a followup of this ulceration and biopsy. The patient was told today to remain only on pureed diet until the repeat endoscopy is done. Last endoscopy was done only about a week ago. Would recommend to continue PPI, pureed diet. The patient is scheduled for stress test. We will await for further cardiac evaluation before considering colonoscopy or repeat EGD evaluation. Repeat EGD test would be deferred for another 1 to 2 weeks' time to evaluate healing of the ulcer and biopsy followup. Other comorbidities include biopsy followup. Thank you very much for allowing us to participate in the care of the patient. Johanny Silverio MD
[2017-09-01 05:38] VITALS: O2SAT 97
[2017-09-01 07:17] LABS: BASO # 0.03 K/mm3 (0.0-2.0); BASO % 0.4 % (0.0-3.0); EOS # 0.2 (0.0-0.7); EOS % 2.8 % (1.5-5.0); GRAN # 5.48 (1.4-6.5); HEMOGLOBIN 10.3 g/dL (12.0-16.0); LYMPH # 0.9 (1.2-3.4); LYMPH % 12.2 % (22.0-35.0); MEAN CELL VOLUME 75.5 fl (80.0-105.0); MEAN CORPUSCULAR HEMOGLOBIN 23.8 pg (25.0-35.0); MEAN CORPUSCULAR HGB CONC 31.5 g/dl (31.0-37.0); MEAN PLATELET VOLUME 10.5 fl (7.0-11.0); MONO % 12.6 % (1.0-6.0); RBC 4.33 10^6/uL (3.5-6.1); RED CELL DISTRIBUTION WIDTH 19.4 % (11.5-14.5); WHITE BLOOD COUNT 7.6 10^3/ul (4.5-11.0)
[2017-09-01 07:36] LABS: ALB/GLOB RATIO 0.8 (1.1-1.8); ALT/SGPT 29 U/L (7-56); AST/SGOT 22 U/L (14-36); BLOOD UREA NITROGEN 18 mg/dL (7-21); CALCIUM 9.3 mg/dL (8.4-10.5); GFR AFRICAN-AMERICAN > 60; GFR NON-AFRICAN AMERICAN > 60
[2017-09-01 07:38] LABS: B-TYPE NATRIURETIC PEPTIDE 3010 pg/mL (0-450)
[2017-09-01] MEDS ORDERED: POLYETHYLENE GLYCOL 3350 17 GM/Dose PACKET PO SCH (10:15)
[2017-09-01] MEDS ORDERED: Magnesium Oxide 400 mg Tab UD PO SCH (10:15)
[2017-09-01] MEDS: Magnesium Sulfate 2 GM in Sodium Chloride 0.9% 100 ML IVPB SCH ×2 (10:45→11:57)
--- NOTE | 2017-09-01 12:36 | PN ---
DATE: 09/01/2017 PULMONARY PROGRESS NOTE REFERRING PHYSICIAN: Dr. Barajas. SUBJECTIVE: She is lying in the bed, head at 45 degrees. Night was unremarkable. Feels better. Decreased cough. Decreased shortness of breath. No nausea. No vomiting, diarrhea, leg pain or leg swelling. OBJECTIVE: GENERAL: In no acute distress. VITAL SIGNS: Temperature is 98, heart rate is 76, respiratory rate is 18, blood pressure 112/58, pulse ox 97% on nasal cannula. HEENT: Moist mucous membrane. Crowded airway. NECK: Supple. No JVD. LUNGS: Have a few crackles at bases. HEART: S1 and S2 with murmur. ABDOMEN: Soft, nontender. No organomegaly. EXTREMITIES: There is no edema. NEUROLOGIC: Awake and alert. Follows simple command. MEDICATIONS: She is on Calan 40 mg three times a day, Cozaar 100 mg daily, ferrous sulfate 324 mg twice a day, Lasix 40 mg daily, mag oxide 400 mg twice a day, magnesium sulfate was given, MiraLax 17 g daily, Pepcid 20 mg daily. LABORATORY DATA: Shows hemoglobin 10.3, hematocrit 32.7, WBC is 7.6, platelet count is 219. Sodium 132, potassium 4, chloride 97, bicarbonate 28, BUN 18, creatinine 0.8, glucose 107, calcium is 9.3, phosphorus 5.4, magnesium 1.2, AST 22, ALT 29, alk phos is 84. ProBNP 3010. Albumin is 3. IMPRESSION AND PLAN: Cardiomyopathy, valvular heart disease, severe pulmonary hypertension, paroxysmal atrial fibrillation, anemia, hypertension. Pulmonary point of view, she is doing okay. Keep head at 45 degrees. Sleep apnea precaution. Careful with sedation. Continue afterload junior java developer, beta-cristian. Cardiology followup. Upon discharge, outpatient sleep study to rule out sleep apnea causes of cardiomyopathy and pulmonary hypertension. Thank you and we will follow with you. Eveline Crespo MD
[2017-09-01 13:03] VITALS: BP 98/52; PULSE 78; RESP 20; TEMP 97.4
--- NOTE | 2017-09-01 15:41 | PN ---
DATE: 09/01/2017 REASON FOR CONSULTATION AND FOLLOWUP: Cardiac evaluation, paroxysmal atrial fibrillation, shortness of breath, anemia and refuses stress test today. SUBJECTIVE: Denies any chest pain, shortness of breath, or any palpitations. OBJECTIVE: GENERAL: Not in apparent distress, lying flat in the bed. VITAL SIGNS: Temperature afebrile, heart rate 72, blood pressure 112/58. HEENT: PERRLA. Extraocular muscles intact. NECK: Supple. No carotid bruit or thyromegaly. CHEST: Clear to auscultation. HEART: S1 and S2, regular. ABDOMEN: Soft. EXTREMITIES: Clubbing and cyanosis negative. LABORATORY DATA: Blood workup as follows: WBC 7.3, hemoglobin 10.3, hematocrit 32.7, platelet count 219. Chemistry shows sodium 133, chloride 99, carbon dioxide 28, potassium 4, magnesium 1.2. BNP decreased to 3010, admitting BNP was 8050. IMPRESSION: Hypomagnesemia, hyperphosphatemia, anemia, multifocal atrial tachycardia, arrhythmia. Last time, admitted with atrial fibrillation converted to multifocal atrial tachycardia. Telemetry shows running pacemaker and hypomagnesemia as well. Patient was scheduled for a stress test, but refused stress test. Last admission echo shows ejection fraction of 45% to 50% dated 08/20/2017, both right and left atrium enlargement and heavily calcified mitral annulus calcification. Peak gradient across the aortic valve 17 mm gradient. Moderate to severe aortic regurgitation. Severe tricuspid regurgitation. Right ventricular systolic pressure 86 consistent with severe pulmonary hypertension. Esophagitis on endoscopy and hiatal hernia. Want to do a stress test, patient refused the stress test, was n.p.o. this morning. So, plan is to resume diet, supplement magnesium, aggressively continue verapamil 40 mg p.o. t.i.d. to control the heart going back into MAT and atrial fibrillation. The patient is okay to be discharged from prior Cardiology point of view as the patient refused further cardiac workup but supplement electrolytes. Thank you, Dr. Barajas, for providing us the opportunity in taking care of the patient, Nasir Romo. Eveline Oneal MD [facility] # [id number]
--- NOTE | 2017-09-01 18:31 | CP.PCM.PN ---
Subjective - Date & Time of Evaluation Date of Evaluation: 09/01/17 Time of Evaluation: 11:40 - Subjective Subjective: Seen and examined at the bedside earlier today, chart was reviewed. Patient denies nausea, vomiting, or abdominal pain. Patient reports having bowel movement last night and it was okay no reports of bleeding. Patient refuses stress test today. Patient endorses that she had recent stress test about a year and a half ago which was okay. Objective - Vital Signs/Intake and Output Vital Signs (last 24 hours): Temp Pulse Resp BP Pulse Ox 97.4 F L 78 20 98/52 L 97 09/01/17 12:00 09/01/17 12:00 09/01/17 12:00 09/01/17 12:00 09/01/17 05:37 Intake and Output: 09/01/17 09/01/17 06:59 18:59 Intake Total 240 Balance 240 - Labs Labs: 09/01/17 06:30 09/01/17 06:30 PT 14.1 SECONDS (9.4-12.5) H 08/30/17 13:00 INR 1.23 (0.93-1.08) H 08/30/17 13:00 APTT 28.3 Seconds (25.1-36.5) 08/30/17 13:00 - Constitutional Appears: No Acute Distress - Eye Exam Eye Exam: Normal appearance. absent: Scleral icterus - ENT Exam ENT Exam: Mucous Membranes Moist - Neck Exam Neck Exam: Normal Inspection - Respiratory Exam Respiratory Exam: NORMAL BREATHING PATTERN. absent: Respiratory Distress - Cardiovascular Exam Cardiovascular Exam: +S1, +S2 - GI/Abdominal Exam GI & Abdominal Exam: Soft, Normal Bowel Sounds. absent: Guarding, Tenderness, Rebound - Extremities Exam Extremities Exam: absent: Calf Tenderness, Pedal Edema - Neurological Exam Neurological Exam: Alert, Awake, Oriented x3 - Skin Skin Exam: Dry, Warm Assessment and Plan - Assessment and Plan (Free Text) Assessment: Assessment: Anemia Esophageal ulcer, had endoscopy in 08/24/2017 found to have LA grade D esophagitis circumferential ulcer Decompensated CHF Atrial fibrillation History of gallstones Pulmonary hypertension Plan: Monitor H&H and for overt GI bleed on Pepcid Continue iron On MiraLAX Patient would benefit from repeat endoscopy in about 2 weeks to follow-up esophageal ulcer, discussed with patient. Seen and discussed with Dr. Silverio.
== END 2017-09-01 14:58 | disposition home or self-care (01) ==
LOC: ED 12:30 → ERH 17:36 → 3RSO 20:00
PROVIDERS: ADMIT Internal Medicine; ATTEND Internal Medicine
DX: I11.0 Hypertensive heart disease with heart failure (principal); I50.9 Heart failure, unspecified; I48.0 Paroxysmal atrial fibrillation; I08.2 Rheumatic disorders of both aortic and tricuspid valves; I27.20 Pulmonary hypertension, unspecified; I42.9 Cardiomyopathy, unspecified; K22.10 Ulcer of esophagus without bleeding; K44.9 Diaphragmatic hernia without obstruction or gangrene; D64.9 Anemia, unspecified; E78.5 Hyperlipidemia, unspecified; E83.42 Hypomagnesemia; E83.39 Other disorders of phosphorus metabolism; K21.0 Gastro-esophageal reflux disease with esophagitis; K80.20 Calculus of gallbladder without cholecystitis without obstruction
CPT/HCPCS: 36415; 71045; 71275; 80053; 80061; 82550; 82607; 82728; 82746; 83036; 83540; 83550; 83615; 83735; 83880; 84100; 84436; 84443; 84484; 85025; 85378; 85610; 85730; 86140; 93005; 96374; 97116; 97161; 99285; G0378; G8978; G8979; G8980; J1940; J3475; Q9967